=== PATIENT | male | born 1965 | race Caucasian/White ===

== ENCOUNTER → 2016-07-09 | Day surgery (SDC) | payer MEDICAID, OTHER ==
[~2016-07-09] VITALS: Ht 188 cm; Wt 163.7 kg
[~2016-07-09] MED LIST: ACETAMINOPHEN 325 MG TAB PO PRN; ACETYLCHOLINE OPHTH SOLN 1% 2ML As Ordered ONE; ACTO45TA6 PO; AcetaZOLAMIDE 500 MG ER CAP PO ONE; BALANCED SALT IRRIGATION SOLUTION 500ML BAG (FOR OR EYE MACHINE) As Ordered ONE; CEFUROXIME 1MG/0.1ML INTRACAMERAL INJ As Ordered ONE; CYCLOPENTOLATE 2% OPHTH SOLN As Ordered ONE; CYCLOPENTOLATE 2% OPHTH SOLN OD ONE; GLIP10TA PO; HEALON DUET (HEALON 10MG/ML 0.55ML & HEALON ENDOCOAT 30MG/ML 0.85ML) As Ordered ONE; KETOROLAC 0.5% OPHTH SOLN OD ONE; LIDOCAINE 1% SDV 5 ML VIAL As Ordered ONE; LIDOCAINE 4% INJ 5 ML AMP OU ONE; LISI10TA4 PO; MELO7.5T6 PO; METF1000 PO; MIDAZOLAM INJ 2 MG/2 ML VIAL (J2250) As Ordered ONE; OFLOXACIN 0.3 % (OCUFLOX) OPTH SOL 5ML As Ordered ONE; OFLOXACIN 0.3 % (OCUFLOX) OPTH SOL 5ML OD ONE; PHENYLEPHRINE 2.5% OPHTH SOL 2ML As Ordered ONE; PHENYLEPHRINE 2.5% OPHTH SOL 2ML OD ONE; POVIDONE-IODINE 5% OPHTH PREP SOL 30ML As Ordered ONE; PROPARACAINE 0.5% OPHTH SOL 15ML OD PRN; PROZ20CA11 PO; TIZA2CAP3 PO; TRIMETHOBENZAMIDE 300 MG CAP PO PRN; TROPICAMIDE 1% OPHTH SOLN 2 ML As Ordered ONE; TROPICAMIDE 1% OPHTH SOLN 2 ML OD ONE; fentaNYL 100 MCG/2 ML INJECTION (J3010) As Ordered ONE
--- NOTE | 2016-07-09 10:11 | RO ---
DATE OF PROCEDURE: 07/09/2016 PREPROCEDURE DIAGNOSIS: Age related posterior subcapsular cataract right eye. POSTPROCEDURE DIAGNOSIS: Age related posterior subcapsular cataract right eye. PROCEDURE: Phacoemulsification and posterior chamber intraocular lens implantation right eye. The lens used was [id number]. SURGEON: Greer Mercer MD RESIDENTIAL [employer] TECHNICIAN: ANESTHESIA: Topical with sedation. DESCRIPTION OF PROCEDURE: The patient was prepped and draped in the usual fashion. A lid speculum was placed between the lids. The eye was fixated. A stab incision was made to the anterior chamber, and 1% non-preserved lidocaine was instilled. Then, viscoelastic was instilled. The eye was re-fixated. A 2.75 mm sapphire keratome was used to make a clear corneal temporal limbal incision. Capsulorrhexis was begun with a 30-gauge bent needle and then carried out in a circular fashion with capsulorrhexis forceps. The lens was hydrodissected, and then the phacoemulsification unit was used to make a groove in the nucleus in two meridians. The nucleus was then cracked into four quadrants. Each quadrant was removed with the phacoemulsification unit. Any remaining cortex was removed with the irrigation and aspiration (I and A) unit. Capsular bag was refilled with viscoelastic. A posterior chamber intraocular lens was placed in the capsular bag without difficulty. Any remaining viscoelastic was removed with the I and A unit. The wound was hydrated, and Miochol and cefuroxime were instilled into the anterior chamber. The patient tolerated the procedure well and went to the recovery room in stable condition.
[2016-07-09 10:15] VITALS: BP 158/84
== END ==
LOC: M SDC 08:09
PROVIDERS: ATTEND Ophthalmology
DX: H25.041 Posterior subcapsular polar age-related cataract, right eye (principal); I10 Essential (primary) hypertension; E11.9 Type 2 diabetes mellitus without complications; G62.9 Polyneuropathy, unspecified; M54.9 Dorsalgia, unspecified; E66.01 Morbid (severe) obesity due to excess calories; B02.9 Zoster without complications; Z87.81 Personal history of (healed) traumatic fracture; F32.9 Major depressive disorder, single episode, unspecified; Z87.891 Personal history of nicotine dependence; Z79.899 Other long term (current) drug therapy; Z79.84 Long term (current) use of oral hypoglycemic drugs

== ENCOUNTER → 2017-03-06 | Outpatient (REF) | payer OTHER ==
[~2017-03-06] MED LIST changes: -ACETAMINOPHEN 325 MG TAB PO PRN; -ACETYLCHOLINE OPHTH SOLN 1% 2ML As Ordered ONE; +ACTO45TA12 PO; -ACTO45TA6 PO; -AcetaZOLAMIDE 500 MG ER CAP PO ONE; -BALANCED SALT IRRIGATION SOLUTION 500ML BAG (FOR OR EYE MACHINE) As Ordered ONE; -CEFUROXIME 1MG/0.1ML INTRACAMERAL INJ As Ordered ONE; -CYCLOPENTOLATE 2% OPHTH SOLN As Ordered ONE; -CYCLOPENTOLATE 2% OPHTH SOLN OD ONE; -HEALON DUET (HEALON 10MG/ML 0.55ML & HEALON ENDOCOAT 30MG/ML 0.85ML) As Ordered ONE; -KETOROLAC 0.5% OPHTH SOLN OD ONE; -LIDOCAINE 1% SDV 5 ML VIAL As Ordered ONE; -LIDOCAINE 4% INJ 5 ML AMP OU ONE; -MELO7.5T6 PO; +MELO7.5T7 PO; -METF1000 PO; +METF10004 PO; -MIDAZOLAM INJ 2 MG/2 ML VIAL (J2250) As Ordered ONE; -OFLOXACIN 0.3 % (OCUFLOX) OPTH SOL 5ML As Ordered ONE; -OFLOXACIN 0.3 % (OCUFLOX) OPTH SOL 5ML OD ONE; -PHENYLEPHRINE 2.5% OPHTH SOL 2ML As Ordered ONE; -PHENYLEPHRINE 2.5% OPHTH SOL 2ML OD ONE; -POVIDONE-IODINE 5% OPHTH PREP SOL 30ML As Ordered ONE; -PROPARACAINE 0.5% OPHTH SOL 15ML OD PRN; -TRIMETHOBENZAMIDE 300 MG CAP PO PRN; -TROPICAMIDE 1% OPHTH SOLN 2 ML As Ordered ONE; -TROPICAMIDE 1% OPHTH SOLN 2 ML OD ONE; -fentaNYL 100 MCG/2 ML INJECTION (J3010) As Ordered ONE
[2017-03-06 12:47] LABS: BLOOD UREA NITROGEN 22 MG/DL (7-18); CREATININE FOR GFR 1.15 MG/DL (0.70-1.30); GLOMERULAR FILTRATION RATE > 60.0 (>56)
== END ==
LOC: M LABDRAW1 11:49
PROVIDERS: ATTEND Physical Medicine & Rehabilitation
DX: M43.17 Spondylolisthesis, lumbosacral region (principal)

== ENCOUNTER → 2017-06-15 | Outpatient (REF) | payer OTHER ==
[2017-06-15 15:55] LABS: PLATELET COUNT, AUTOMATED 252 10^3/uL (150-450)
[2017-06-15 16:04] LABS: INR 0.89; PROTHROMBIN TIME 12.1 SECONDS (12.4-14.5)
[2017-06-15 16:05] LABS: PARTIAL THROMBOPLASTIN TIME 27.3 SECONDS (26.8-37.9)
== END ==
LOC: M LABDRAW1 13:04
DX: Z01.812 Encounter for preprocedural laboratory examination (principal)
CPT/HCPCS: 85049

== ENCOUNTER 2018-08-24 09:48 | Inpatient (IN) | payer OTHER ==
[~2018-08-24] VITALS: Ht 190.5 cm; Wt 165.0 kg
[~2018-08-24 09:48] MED LIST changes: +TIZA2CAP PO; -TIZA2CAP3 PO
[2018-08-24 15:50] VITALS: BP 128/70
[2018-08-24] MEDS ORDERED: DEXTROSE 50% 50 ML SYRINGE IV PRN (17:00)
[2018-08-24] MEDS ORDERED: GLUCOSE 4 GM CHEW TABLET PO PRN (17:00)
[2018-08-24] MEDS ORDERED: MAALOX 30 ML SUSP *UDC PO PRN (17:00)
[2018-08-24] MEDS ORDERED: MOM 30ML SUSPENSION UDC PO PRN (17:00)
[2018-08-24] MEDS ORDERED: ACETAMINOPHEN TAB 650MG DOSE (2X325MG) PO PRN (17:00)
[2018-08-24] MEDS ORDERED: GLUCAGON FOR INJ 1 MG VIAL (J1610) SC PRN (17:00)
[2018-08-24 17:42] LABS: HEMATOCRIT 37.2 % (42.0-52.0); HEMOGLOBIN 12.5 g/dl (13.5-17.5); MEAN CORPUSCULAR HEMOGLOBIN 28.8 pg (27.0-33.0); MEAN CORPUSCULAR HGB CONC 33.6 g/dl (32.0-36.5); MEAN CORPUSCULAR VOLUME 85.7 fl (80.0-96.0); PLATELET COUNT, AUTOMATED 170 10^3/uL (150-450); RED BLOOD COUNT 4.34 10^6/uL (4.30-6.10); WHITE BLOOD COUNT 10.5 10^3/uL (4.0-10.0)
--- NOTE | 2018-08-24 17:43 | REP ---
Clinical: Admission . Comparison: None . Findings: The mediastinum and cardiac silhouette are stable and within normal limits for portable technique. The lung cunningham are clear without acute consolidation, effusion, or pneumothorax. Skeletal structures are intact. Impression: No acute cardiopulmonary process appreciated. Electronically Signed by Zia Gregory MD 08/24/2018 05:34 P
[2018-08-24 17:53] LABS: INR 0.93; PROTHROMBIN TIME 12.6 SECONDS (12.1-14.4)
[2018-08-24 18:02] LABS: ALBUMIN 2.9 GM/DL (3.2-5.2); BILIRUBIN,TOTAL 0.4 MG/DL (0.2-1.0); CALCIUM LEVEL 8.7 MG/DL (8.5-10.1); CREATININE FOR GFR 1.35 MG/DL (0.70-1.30); GLOMERULAR FILTRATION RATE 58.6 (>56); POTASSIUM SERUM 4.1 MEQ/L (3.5-5.1); TOTAL PROTEIN 6.5 GM/DL (6.4-8.2)
[2018-08-24] MEDS: PIPERACILLIN/TAZOBACTAM SOD 3.375 GM in D5W MINI-BAG PLUS 50 ML IV SCH (18:20)
[2018-08-24] MEDS: HumaLOG INSULIN (NovoLOG) PER UNIT SC SCH ×2 (18:21→21:00)
[2018-08-24] MEDS ORDERED: GABA-843 PO (19:17)
[2018-08-24] MEDS ORDERED: CYCL10TA PO (19:17)
[2018-08-24] MEDS ORDERED: MONT10TA2 PO (19:17)
[2018-08-24] MEDS ORDERED: BASA100I SC (19:17)
[2018-08-24] MEDS ORDERED: HYDR-3713 PO (19:17)
[2018-08-24] MEDS ORDERED: MOBI4TAB PO (19:17)
--- NOTE | 2018-08-24 19:21 | HPEPDOC ---
General Date of Admission August 24, 2018 at 15:49 Date of Service: August 24, 2018 Attending Physician: CIERA MORELOS MD Chief Complaint The patient is a 53-year-old male admitted with a reason for visit of Osteomylitis. Source: Patient, RN/MD Exam Limitations: No limitations Timing/Duration: Getting worse Severity: Severe Associated Symptoms: Fever, Chills, Malaise, Nausea, Weakness, Dizziness History of Present Illness Patient is a 53-year-old male, past medical history significant for type 2 diabetes mellitus, morbid obesity, nicotine dependence, hypertension, t ransferred from another hospital on account of diabetic foot ulcer. Patient states last November. He stopped his left big toe and had a callus. Initially started to treat with Neosporin but when foot did not get better he saw his primary care physician who prescribed antibiotics and rest to the affected extremity for 2-3 weeks. His symptoms resolved and states foot did not bother him anymore. Occasionally, however, he noticed intermittently cage from the wound to his socks. Last , patient was walking when he suddenly felt nauseous, generalized malaise, nausea and vomiting. He went to the emergency room and was given antibiotic, Levaquin and sent home. Patient returned the next day, worse with a temp of 103. He was admitted and placed on vancomycin and Zosyn. His left foot at the time was swollen, red with streaking to his knee. Patient states he requested to be transferred to this facility for further evaluation and management. On initial assessment here. He is not febrile foot is still very painful, however,per patient looks improved from prior. Home Medications Scheduled Fluoxetine HCl (Prozac) 20 Mg Cap, 60 MG PO DAILY, (Reported) Gabapentin (Gabapentin) 300 Mg Capsule, 300 MG PO BID, (Reported) Glipizide (Glipizide) 10 Mg Tab, 10 MG PO BID, (Reported) Insulin Glargine,Hum.rec.anlog (Basaglar Kwikpen U-100) 100 Unit/1 Ml Insu ln.pen, 40 UNIT SC BID, (Reported) Insulin Human Lispro (Humalog) 100 Unit/1 Ml Vial, 1 DOSE SC ACHS, (Reported) PER SLIDING SCALE - STARTED AT [facility] Lisinopril (Lisinopril) 10 Mg Tab, 10 MG PO DAILY, (Reported) Meloxicam (Mobic) 7.5 Mg Tablet, 7.5 MG PO BID, (Reported) Metformin HCl (Metformin HCl) 1,000 Mg Tab, 1,000 MG PO BID, (Reported) Montelukast Sodium (Montelukast Sodium) 10 Mg Tablet, 10 MG PO QHS, (Reported) Nicotine (Nicotine Patch) 21 Mg/24 Hr Patch.td24, 21 MG TD DAILY, (Reported) STARTED AT [facility] Pioglitazone HCl (Actos) 45 Mg Tab, 45 MG PO DAILY, (Reported) Piperacillin Sodium/Tazobactam (Zosyn 3.375 Gram Vial) 3.375 Gm Vial, 1 INJ IV ASDIRECTED, (Reported) STARTED AT [facility] Tizanidine HCl (Tizanidine HCl) 2 Mg Cap, 6 MG PO TID, (Reported) Vancomycin/0.9 % Sod Chloride (Vanco 1.5 gm/500 ml-0.9% NaCl) 1.5 Gm/500 Ml Plast..bag, 1,500 MG IV ASDIRECTED, (Reported) STARTED AT [facility] Scheduled PRN Cyclobenzaprine HCl (Cyclobenzaprine HCl) 10 Mg Tablet, 10 MG PO QHS PRN for MUSCLE SPASMS, (Reported) Hydrocodone/Acetaminophen (Hydrocodone-Acetamin 5-325 mg) 1 Each Tablet, 1 TAB PO BID PRN for PAIN, (Reported) Allergies Coded Allergies: clindamycin (Verified Allergy, Severe, "CHEST POUNDING AND COULDN'T BREATHE", 08/24/18) Past Medical History Medical History Hypertension Type 2 diabetes mellitus Morbid obesity Nicotine dependence Gout Surgical History Umbilical hernia repair Right eye cataract Colonoscopy Back surgeries Family History Father: Non-Hodgkin's lymphoma Leukemia Mother: Diabetes mellitus Social History * Smoker: less than 1 pack/day, cigarettes, chew Drugs: denies A-FIB/CHADSVASC A-FIB History Current/History of A-Fib/PAF?: No Current PO Anticoag Therapy: No Review of Systems Other systems A 10 point pertinent review of systems was completed, negative except as stated in the history of presenting illness. Physical Examination Other physical findings GENERAL: obese SKIN : Warm, erythema and bullae to left foot great toe, medial aspect HEENT: Atraumatic, normocephalic, PERRL, moist mucous membrane CARDIOVASCULAR: Regular rate and rhythm, S1S2, no JVD, no edema, distal pulses + and palpable RESP: CTAB, no accessory muscle use noted ABDOMEN: BS+ non distended non tender MS: no joint deformities NEURO: Alert and oriented x 3, CN2-12 grossly intact PSYCH: no anxiety or agitation, appropriate mood and affect. Vital Signs Vital Signs Date Time Temp Pulse Resp B/P (MAP) Pulse Ox O2 Delivery O2 Flow Rate FiO2 08/24/18 15:50 97.9 77 18 128/70 (89) 95 Laboratory Data Labs 24H Laboratory Tests 2 08/24/18 17:24: Nucleated Red Blood Cells % (auto) 0.0, Prothrombin Time 12.6, Prothromb Time International Ratio 0.93, Anion Gap 5L, Glomerular Filtration Rate 58.6, Blood Urea Nitrogen 20H, Creatinine 1.35H, Sodium Level 138, Potassium Level 4.1, Chloride Level 103, Carbon Dioxide Level 30, Calcium Level 8.7, Aspartate Amino Transf (AST/SGOT) 56H, Alanine Aminotransferase (ALT/SGPT) 140H, Alkaline Phosphatase 126H, Total Bilirubin 0.4, Total Protein 6.5, Albumin 2.9L, Albumin/Globulin Ratio 0.81L 08/24/18 17:36: Bedside Glucose (Misc Panel) 216H CBC/BMP Laboratory Tests 08/24/18 17:24 Red Blood Count 4.34, Mean Corpuscular Volume 85.7, Mean Corpuscular Hemoglobin 28.8, Mean Corpuscular Hemoglobin Concent 33.6, Red Cell Distribution Width 13.4, Calcium Level 8.7, Aspartate Amino Transf (AST/SGOT) 56 H, Alanine Aminotransferase (ALT/SGPT) 140 H, Alkaline Phosphatase 126 H, Total Bilirubin 0.4, Total Protein 6.5, Albumin 2.9 L Microbiology Microbiology 08/24/18 Blood Culture, Received Pending Problems (1) Left foot infection Problem Text: -Continue vancomycin and Zosyn initiated at the other hospital -Consult infectious disease specialist for evaluation and recommendations -ID will need to be called as not available tonight -Discussed with Dr. Alcazar covering for ID was recommended. MRI of 2 to rule out osteomyelitis in the interim -Arterial duplex to evaluate for vascular competency -have consulted vascular specialist, Dr. Ames will follow up the patient tomorrow -Podiatry has also been consulted and will see patient tomorrow-foot x-ray ordered as recommended -frequent offloading (2) Diabetes mellitus type 2 in obese Problem Text: -Hold metformin and glipizide at this time -Diabetic diet, caloric controlled -Finger stick checks prior to meals and at bedtime -Basal bolus therapy -. Levemir 50 units twice a day -5 units lispro prior to meals (3) Hypertension Problem Text: -Continue home medications -Blood pressure monitoring per unit protocol -. Target systolic blood pressure less than 140 (4) DVT prophylaxis Problem Text: -Heparin SQ Q8 (5) Renal insufficiency Problem Text: -uncertain if reduced renal clearance chronic or acute -continuous IVF with NS -monitor response to therapy with labs (6) Nicotine dependence Problem Text: -patient has been counselled. No NicoDerm at this time due to non healing infection (7) Advance care planning Problem Text: -Code status is full resuscitation -Anticipate patient will need longer than 2 midnights due to diabetic foot ulcer, uncontrolled diabetes and possible osteomyelitis Plan / VTE VTE Prophylaxis Ordered?: Yes Plan Plan Seen and examined at bedside, was present at the bedside Guest discussed with COURT ATTENDANT Adoara Will admit patient to medical floor MRI of right foot. An x-ray of right foot has been ordered Vascular podiatry and ID consults are been called Continue IV antibiotics to recommendations from [facility] August 24, 2018 19:21 CIERA MORELOS MD August 25, 2018 07:25
[2018-08-24] MEDS ORDERED: MORPHINE 4 MG/ML 1ML VIAL/SYRINGE (J2270) IV PRN (19:30)
--- NOTE | 2018-08-24 19:32 | REP ---
Clinical: Ulcer at first toe. Technique: AP and lateral views of the left foot. Findings: Degenerative changes to the midfoot are appreciated along with degenerative changes at the tarsometatarsal joints. No acute fracture dislocation. Lateral view suggests mild swelling. No subcutaneous emphysema. No periosteal reaction to suggest osteomyelitis by radiographic evaluation. Impression: Degenerative changes primarily involving the midfoot and MTP joints. No acute fracture dislocation. No definite findings to suggest osteomyelitis. Electronically Signed by Zia Gregory MD 08/24/2018 07:23 P
[2018-08-24] MEDS ORDERED: NICO1DIS11 TD (19:47)
[2018-08-24] MEDS ORDERED: INSUHUMDS SC (19:47)
[2018-08-24] MEDS ORDERED: ZOSY3INJ2 IV (19:47)
[2018-08-24] MEDS ORDERED: [UNRECOGNIZED DRUG - CODE] IV (19:47)
[2018-08-24] MEDS ORDERED: VANCOMYCIN HCL 1,000 MG, VIAL MATE ADAPTER 1 EACH in D5W 250 ML IV ONE ×2 (20:00→21:00)
[2018-08-24] MEDS ORDERED: PROHANCE 279.3MG/ML 15ML VIAL (A9576) As Ordered ONE (20:20)
--- NOTE | 2018-08-24 20:58 | REPVR ---
EXAM: MR Left Lower Extremity Without and With Contrast, Foot EXAM DATE/TIME: 08/24/2018 8:33 PM CLINICAL HISTORY: 53 years old, male; Toes; Left; Patient HX: Chronic foot problems. No ulcer at this time, but 1st toe red and painful. ; Additional info: R/O osteomyelitis TECHNIQUE: Imaging protocol: MR of the Left foot without and with intravenous contrast. Contrast material: PROHANCE; Contrast volume: 15 ml; Contrast route: IV COMPARISON: CR Foot, Ap, Lat 08/24/2018 7:09 PM FINDINGS: Soft tissue swelling is present around the ankle and the foot with particular circumferential forefoot soft tissue swelling. No identifiable peripherally enhancing fluid collection suggestive of a drainable abscess or nail bed infection. 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 None of these bony changes appear acute. Within the forefoot, benign subchondral cysts are seen involving the TMT joints and proximal fifth metatarsal. No identifiable cortical disruption with particular attention to the great toe. No replacement of the normal T1 marrow signal. No evidence of septic arthropathy. Small volume of well-defined joint fluid at the dorsal aspect of the great toe MTP joint suggests a normal synovial recess. No evidence of tendon sheath infection. IMPRESSION: No evidence of osteomyelitis or septic arthropathy. Nonspecific soft tissue swelling of the forefoot and midfoot without evidence of drainable fluid collection Chronic neuroarthropathy changes of the midfoot Electronically signed by: Akil Hernandez On 08/24/2018 20:57:47 PM
[2018-08-24] MEDS: DOCUSATE SODIUM 100 MG CAP PO SCH (21:10)
[2018-08-24] MEDS: HEPARIN SOD (PORCINE) 5000 UNITS/ML VIAL SC SCH (21:10)
[2018-08-24] MEDS: LEVEMIR (INSULIN DETEMIR) 1 UNITS/0.01ML SC SCH (21:11)
[2018-08-24] MEDS: NORCO, ANEXSIA 5/325MG TABLET (HYDROcodone/ACETAMINOPHEN) PO PRN (21:12)
[2018-08-24] MEDS: NS 1,000 ML IV SCH (21:12)
[2018-08-24 22:00] VITALS: BP 162/81
--- NOTE | 2018-08-24 22:51 | PHACANCOPD ---
PHARMACY VANCOMYCIN DOSING Pt Demographics Demographics Patient Age:53 , Weight:165.000 , Gender: male Adjusted Body Weight Events Past 24 Hours Events Past 24 Hours: NO: Dialysis, Diuretic Therapy, Change in CrCl, Fever, Elevation in WBC, Pending Diagnostics, Pending Procedures, Other Vancomycin Vancomycin indication: DIABETIC FOOT Vancomycin Target Ranges: 10-20 mcg/ml Vancomycin Load Y/N: No Load Dose Date Time Vancomycin Load Dose: Date: Time: Vancomycin Dose Date: 08/24/18. Current Vancomycin Dose: [1GM IV Q8H START 23:00] Intermittent Dosing?: No Labs Labs Laboratory Tests Test 08/24/18 20:52 Random Vancomycin Level 10.3 UG/ML Laboratory Tests 08/24/18 17:24 Red Blood Count 4.34, Mean Corpuscular Volume 85.7, Mean Corpuscular Hemoglobin 28.8, Mean Corpuscular Hemoglobin Concent 33.6, Red Cell Distribution Width 13.4, Calcium Level 8.7, Aspartate Amino Transf (AST/SGOT) 56, Alanine Aminotransferase (ALT/SGPT) 140, Alkaline Phosphatase 126, Total Bilirubin 0.4, Total Protein 6.5, Albumin 2.9 Micro Microbiology 08/24/18 Blood Culture, Received Pending 08/24/18 MRSA Screen, Received Pending Creatinine Clearance Date:08/24/18. Creatinine Clearance: [>60 ml/min]. Pending Labs VANCO TROUGH 08/25/18 23:00 DOSE Assessment and Plan Maintaining Current Dose?: Yes Reason for dose change: No Dose Change Pharmacist Note Pharmacist Note Date: 08/24/18. PharmD note: TRANSFER FROM [facility]. RECORDS INDICATE A 1.5GM DOSE OF VANCO WAS GIVEN AT 11AM THIS MORNING. IT ISN'T CLEAR IF THIS WAS A ONE TIME DOSE OR A SCHEDULED MED. A RANDOM VANCO LEVEL DRAWN THIS EVENING = 10.3 mcg/ml. WE WILL CONTINUE WITH 30MG/KG/DAY ADJUSTED AND PROCEED WITH VANCO 1GM IV Q8H STARTING AT 23:00 THIS EVENING. A VANCO TROUGH IS PENDING HIS 08/25/18 23:00 DOSE [facility] August 24, 2018 22:51
[2018-08-24] MEDS: VANCOMYCIN HCL 1,000 MG, VIAL MATE ADAPTER 1 EACH in D5W 250 ML IV SCH (22:57)
[2018-08-24] MEDS ORDERED: NICOTINE 14 MG/24 HR TRANSDERMAL TD ONE (23:00)
[2018-08-25] MEDS: PIPERACILLIN/TAZOBACTAM SOD 3.375 GM in D5W MINI-BAG PLUS 50 ML IV SCH ×4 (00:18→17:18)
[2018-08-25] MEDS: HEPARIN SOD (PORCINE) 5000 UNITS/ML VIAL SC SCH ×3 (05:45→21:00)
[2018-08-25 06:00] VITALS: BP 148/82
[2018-08-25 06:07] LABS: HEMATOCRIT 39.1 % (42.0-52.0); MEAN CORPUSCULAR HEMOGLOBIN 28.3 pg (27.0-33.0); MEAN CORPUSCULAR HGB CONC 33.2 g/dl (32.0-36.5); MEAN CORPUSCULAR VOLUME 85.2 fl (80.0-96.0); PLATELET COUNT, AUTOMATED 209 10^3/uL (150-450); RED BLOOD COUNT 4.59 10^6/uL (4.30-6.10); WHITE BLOOD COUNT 10.3 10^3/uL (4.0-10.0)
[2018-08-25 06:40] LABS: ALBUMIN 2.6 GM/DL (3.2-5.2); ALT/SGPT 127 U/L (12-78); BILIRUBIN,TOTAL 0.4 MG/DL (0.2-1.0); BLOOD UREA NITROGEN 16 MG/DL (7-18); CALCIUM LEVEL 8.6 MG/DL (8.5-10.1); CARBON DIOXIDE LEVEL 29 MEQ/L (21-32); CHLORIDE LEVEL 107 MEQ/L (98-107); CREATININE FOR GFR 1.15 MG/DL (0.70-1.30); GLOMERULAR FILTRATION RATE > 60.0 (>56); GLUCOSE, FASTING 92 MG/DL (70-100); MAGNESIUM LEVEL 1.8 MG/DL (1.8-2.4); POTASSIUM SERUM 3.9 MEQ/L (3.5-5.1); SODIUM LEVEL 142 MEQ/L (136-145); TOTAL PROTEIN 6.6 GM/DL (6.4-8.2)
[2018-08-25] MEDS: VANCOMYCIN HCL 1,000 MG, VIAL MATE ADAPTER 1 EACH in D5W 250 ML IV SCH ×3 (06:49→22:31)
[2018-08-25] MEDS: HumaLOG INSULIN (NovoLOG) PER UNIT SC SCH ×7 (07:30→20:45)
[2018-08-25] MEDS: DOCUSATE SODIUM 100 MG CAP PO SCH ×2 (09:00→20:59)
[2018-08-25] MEDS: NS 1,000 ML IV SCH ×2 (09:54→15:01)
[2018-08-25] MEDS: NICOTINE 14 MG/24 HR TRANSDERMAL TD SCH (09:55)
[2018-08-25] MEDS: LEVEMIR (INSULIN DETEMIR) 1 UNITS/0.01ML SC SCH ×2 (10:07→21:01)
--- NOTE | 2018-08-25 11:31 | IPNPDOC ---
Subjective Date Seen The patient was seen on 08/25/18. Subjective Chief Complaint/HPI Swelling is still there but the redness is slightly improved. No other new complaints General: Denies: ROS Unobtainable, Chills, Night Sweats, Fatigue, Malaise, Normal Appetite, Other Symptoms Constitutional: Denies: Chills, Fever, Malaise, Night Sweats, Weakness, Fatigue, Weight Loss, Lethargy, Other Eyes: Denies: Pain, Vision change, Conjunctivae inflammation, Eyelid inflamm ation, Redness, Other ENT: Denies: Head Aches, Ear Pain, Dysphagia, Sinus Congestion, Post Nasal Drip, Sore Throat, Epistaxis, Other Symptoms Skin: Denies: Rash, Lesions, Jaundice, Bruising, Itching, Dry, Breakdown, Nail Changes, Other Pulmonary: Denies: Dyspnea, Cough, Pleuritic Chest Pain, Other Symptoms Cardiovascular: Denies: Chest Pain, Palpitations, Orthopnea, Paroxysmal Noc. Dyspnea, Edema, Lt Headedness, Other Symptoms Gastrointestinal: Denies: Nausea, Vomiting, Abdominal Pain, Diarrhea, Constipation, Melena, Hematochezia, Other Symptoms Genitourinary: Denies: Dysuria, Frequency, Incontinence, Hematuria, Retention, Other Symptoms Hematologic: Denies: Bruising, Bleeding Excessively, Petecchia, Purpura, Enlarged Lymph Nodes, Other Hematologic Musculoskeletal: Reports: Other Symptoms (. Left foot swelling, but redness has decreased. Left big toe ulceration at the bottom) Neurological: Denies: Weakness, Numbness, Incoordination, Change in speech, Confusion, Seizures, Other Symptoms Psych: Denies: Mood Normal, Anxiety, Depression, Memory Issues, Thoughts of Rhea f Harm, Anger, Thoughts of Harming Other, Other Psych Objective Physical Examination General Exam: Positive: Alert Eye Exam: Positive: PERRLA, Conjunctiva & lids normal ENT Exam: Positive: Atraumatic, Mucous membr. moist/pink Neck Exam: Positive: Supple Chest Exam: Positive: Clear to auscultation, Normal air movement Heart Exam: Positive: Rate Normal, Normal S1, Normal S2 Abdomen Exam: Positive: Normal bowel sounds, Soft Extremity Exam: Positive: Other (swelling of the left big toe with this with ulceration at the bottom also swelling of the left foot noted, but redness is decreased) Skin Exam: Positive: Other skin issue (as above) Neuro Exam: Positive: Strength at 5/5 X4 ext, Normal Tone, Sensation Intact Psych Exam: Positive: Mental status NL, Mood NL Assessment /Plan Problems (1) Left foot infection Problem Text: -Continue vancomycin and Zosyn initiated at the other hospital -Consult infectious disease specialist for evaluation and recommendations -ID will need to be called as not available tonight MRI of the foot shows no indication of osteomyelitis Discussed with Dr. Welsh, Continue Vanco and Zosyn, and she will see the patient tomorrow Also discussed with the wound management and agreed with the plan -Arterial duplex to evaluate for vascular competency -have consulted vascular specialist, Dr. Ames will follow up the patient tomorrow -Podiatry has also been consulted and will see patient tomorrow-foot x-ray ordered as recommended -frequent offloading (2) Diabetes mellitus type 2 in obese Problem Text: -Hold metformin and glipizide at this time -Diabetic diet, caloric controlled -Finger stick checks prior to meals and at bedtime -Basal bolus therapy -. Levemir 50 units twice a day -5 units lispro prior to meals (3) Hypertension Problem Text: -Continue home medications -Blood pressure monitoring per unit protocol -. Target systolic blood pressure less than 140 (4) DVT prophylaxis Problem Text: -Heparin SQ Q8 (5) Renal insufficiency Problem Text: -uncertain if reduced renal clearance chronic or acute -continuous IVF with NS -monitor response to therapy with labs (6) Nicotine dependence Problem Text: -patient has been counselled. No NicoDerm at this time due to non healing infection (7) Advance care planning Problem Text: -Code status is full resuscitation -Anticipate patient will need longer than 2 midnights due to diabetic foot ulcer, uncontrolled diabetes and possible osteomyelitis Plan/VTE VTE Prophylaxis Ordered?: Yes VS, I&O, 24H, Fishbone Vital Signs/I&O Vital Signs Date Time Temp Pulse Resp B/P (MAP) Pulse Ox O2 Delivery O2 Flow Rate FiO2 08/25/18 06:00 97.8 63 18 148/82 (104) 97 I&O- Last 24 Hours up to 6 AM 08/25/18 06:00 Intake Total 1520 ml Output Total 1390 ml Balance 130 ml Laboratory Data 24H LABS Laboratory Tests 2 08/24/18 17:24: Nucleated Red Blood Cells % (auto) 0.0, Prothrombin Time 12.6, Prothromb Time International Ratio 0.93, Anion Gap 5L, Glomerular Filtration Rate 58.6, Blood Urea Nitrogen 20H, Creatinine 1.35H, Sodium Level 138, Potassium Level 4.1, Chloride Level 103, Carbon Dioxide Level 30, Calcium Level 8.7, Aspartate Amino Transf (AST/SGOT) 56H, Alanine Aminotransferase (ALT/SGPT) 140H, Alkaline Phosphatase 126H, Total Bilirubin 0.4, Total Protein 6.5, Albumin 2.9L, Albumin/Globulin Ratio 0.81L 08/24/18 17:36: Bedside Glucose (Misc Panel) 216H 08/24/18 20:52: Random Vancomycin Level 10.3 08/24/18 21:21: Urine Color YELLOW, Urine Appearance CLEAR, Urine pH 5.0, Urine Specific [place] 1.013, Urine Protein NEGATIVE, Urine Glucose (UA) 3+H, Urine Ketones NEGATIVE, Urine Blood NEGATIVE, Urine Nitrite NEGATIVE, Urine Bilirubin NEGATIVE, Urine Urobilinogen 0.2, Urine Leukocyte Esterase NEGATIVE, Urine WBC (Auto) 1, Urine RBC (Auto) 1, Urine Hyaline Casts (Auto) 0, Urine Bacteria (Auto) NEGATIVE, Urine Squamous Epithelial Cells 0, Urine Mucus (Auto) SMALL, Urine Sperm (Auto) 08/25/18 05:35: Nucleated Red Blood Cells % (auto) 0.0, Anion Gap 6L, Glomerular Filtration Rate > 60.0, Blood Urea Nitrogen 16, Creatinine 1.15, Sodium Level 142, Potassium Level 3.9, Chloride Level 107, Carbon Dioxide Level 29, Calcium Level 8.6, Aspartate Amino Transf (AST/SGOT) 37, Alanine Aminotransferase (ALT/SGPT) 127H, Alkaline Phosphatase 119H, Total Bilirubin 0.4, Total Protein 6.6, Albumin 2.6L, Magnesium Level 1.8, Albumin/Globulin Ratio 0.65L 08/25/18 05:40: Bedside Glucose (Misc Panel) 95 08/25/18 11:18: Bedside Glucose (Misc Panel) 262H CBC/BMP Laboratory Tests 08/24/18 17:24 Red Blood Count 4.34, Mean Corpuscular Volume 85.7, Mean Corpuscular Hemoglobin 28.8, Mean Corpuscular Hemoglobin Concent 33.6, Red Cell Distribution Width 13.4, Calcium Level 8.7, Aspartate Amino Transf (AST/SGOT) 56 H, Alanine Aminotransferase (ALT/SGPT) 140 H, Alkaline Phosphatase 126 H, Total Bilirubin 0.4, Total Protein 6.5, Albumin 2.9 L 08/25/18 05:35 Red Blood Count 4.59, Mean Corpuscular Volume 85.2, Mean Corpuscular Hemoglobin 28.3, Mean Corpuscular Hemoglobin Concent 33.2, Red Cell Distribution Width 13.3, Calcium Level 8.6, Aspartate Amino Transf (AST/SGOT) 37, Alanine Aminotransferase (ALT/SGPT) 127 H, Alkaline Phosphatase 119 H, Total Bilirubin 0.4, Total Protein 6.6, Albumin 2.6 L Microbiology Microbiology 08/24/18 Blood Culture, Received Pending 08/24/18 MRSA Screen, Received Pending CIERA MORELOS MD August 25, 2018 11:31
--- NOTE | 2018-08-25 12:56 | CR ---
DATE OF CONSULTATION: 08/25/2018 REASON FOR CONSULTATION: Left hallux infection. Dain Mccarthy is a 53-year-old male who was admitted to the hospital yesterday as a transfer due to worsening left hallux infection. He states this began about a week ago. He was treated outpatient with oral antibiotics. However, the wound and infection worsened, and he became febrile. He was admitted to the emergency room (ER), subsequently transferred here. He has been started on empiric antibiotics with some improvement. PAST MEDICAL HISTORY: Is significant for diabetes, hypertension, obesity, gout. SURGICAL HISTORY: Includes umbilical hernia repair, cataract surgery, colonoscopy, back surgeries. SOCIAL HISTORY: Positive for tobacco use. Denies other drug use. ALLERGIES: Include CLINDAMYCIN. VITAL SIGNS: Are reviewed. He has been afebrile since admission. LABORATORIES: Are reviewed. White blood cell count was 10.5 on admission and 10.3 today. IMAGING STUDIES: Are reviewed. Foot x-ray and MRI are unremarkable in the area of the wound on the left hallux. There is some suggestion of Charcot changes to the midfoot. LOWER EXTREMITY EXAMINATION: Pedal pulses are palpable. There is some diminished sensation to both feet. There is an ulceration to the left hallux, plantar medial aspect with callus formation and surrounding erythema and some trace purulence. ASSESSMENT: A 53-year-old diabetic male with left hallux infection. PLAN: Incision and drainage performed following time-out and consent. The left hallux was prepped with Betadine solution. Using #15 blade, incision and drainage performed, removing the callus and some of the nonviable tissue. Trace purulence was noted underneath the callus. This was swabbed for culture. Sterile dressings were applied. No anesthesia was used due to neuropathy. Continue current antibiotics. Start mupirocin ointment to toe daily. Await culture results. Most likely, the patient should be able to be sent home on oral antibiotics with followup with me in office within the next 1-2 weeks.
[2018-08-25 14:00] VITALS: BP 140/80
[2018-08-25] MEDS: MUPIROCIN 2% OINT 22 GM TUBE TOP SCH (15:01)
--- NOTE | 2018-08-25 15:14 | CR.PDOC ---
General Date of Consultation: August 25, [address] Ames. REASON FOR CONSULTATION: LLE non healing wound HPI: 53year oldM transferred from another hospital for further management of diabetic foot ulcer. Patient states last November he stubbed his left big toe and had a "callus". Initially started to treat with Neosporin but when foot did not get better he saw his primary care physician who prescribed antibiotics and rest to the affected extremity for 2-3 weeks. His symptoms resolved and states foot did not bother him anymore. Occasionally, however, he noticed intermittent drainage from the wound to his socks. Last , patient reported he suddenly felt nauseous, generalized malaise, nausea and vomiting. He went to the emergency room and was given antibiotic, Levaquin and sent home. Patient returned the next day, worse with a temp of 103. He was admitted and placed on vancomycin and Zosyn. His left foot at the time was swollen, red with streaking to his knee. Patient states he requested to be transferred to this facility for further evaluation and management. Vascular Surgery is consulted for further recommendations re non healing ulcer LLE. Denies any Headache, Chest Pain, Shortness of breath, cough, palpitations, abdominal pain, N/V/D or changes in bowel or bladder habits. Medical History Hypertension Type 2 diabetes mellitus Morbid obesity Nicotine dependence Gout Surgical History Umbilical hernia repair Right eye cataract Colonoscopy Back surgeries FH Father: Non-Hodgkin's lymphoma Leukemia Mother: Diabetes mellitus Social History Smoker: less than 1 pack/day Drugs: denies ROS: As noted in HPI, otherwise 11pt ROS of systems reviewed and unremarkable. PE: GEN: 53yoM, appears stated age. Well-nourished, well developed. No acute distress. Alert and oriented x 3. HEENT: Normocephalic, atraumatic. Sclera are nonicteric. Conjunctiva without injection. No facial asymmetry. Moist mucous membranes. CHEST: Regular rate and rhythm, +S1, +S2 LUNGS: Clear to auscultation bilaterally. No wheezes, rales, or rhonchi. Breat augustina appears symmetric and easy. ABD: Round, soft, non-tender, non-distended. +Bowel sounds throughout. No rebound or guarding. EXT: No lower extremity edema appreciated. SKIN: Left foot with wound on plantar aspect great toe, yellowish drainage noted. Biphasic DP/PT on left with doppler. NEURO: Alert and oriented x 3. Cranial nerves III-XII are intact. No focal deficits appreciated. MRI Foot No evidence of osteomyelitis or septic arthropathy. Nonspecific soft tissue swelling of the forefoot and midfoot without evidence of drainable fluid collection Chronic neuroarthropathy changes of the midfoot Electronically signed by: Akil Hernandez On 08/24/2018 20:57:47 PM A&P: 53year oldM transferred from another hospital for further management of diabetic foot ulcer. Patient states last November he stubbed his left big toe and had a "callus". Initially started to treat with Neosporin but when foot did not get better he saw his primary care physician who prescribed antibiotics and rest to the affected extremity for 2-3 weeks. His symptoms resolved and states foot did not bother him anymore. Occasionally, however, he noticed intermittent drainage from the wound to his socks. Last , patient was walking when he suddenly felt nauseous, generalized malaise, nausea and vomiting. He went to the emergency room and was given antibiotic, Levaquin and sent home. Patient returned the next day, worse with a temp of 103. He was admitted and placed on vancomycin and Zosyn. His left foot at the time was swollen, red with streaking to his knee. Patient states he reque sted to be transferred to this facility for further evaluation and management. Vascular Surgery is consulted for further recommendations. 1. LLE non healing wound. Afebrile. WBC 10.3. IV Vanco/Zosyn currently as per Hospitalist. SCR 1.15 this AM. Plan for LLE angiogram as per Dr Ames 08/26/18. DVT prophylaxis. SQ Heparin. Thank you for your consultation. We will continue to follow along with you. Vital Signs/I&O Vital Signs Date Time Temp Pulse Resp B/P (MAP) Pulse Ox O2 Delivery O2 Flow Rate FiO2 08/25/18 06:00 97.8 63 18 148/82 (104) 97 I&O- Last 24 Hours up to 6 AM 08/25/18 06:00 Intake Total 1520 ml Output Total 1390 ml Balance 130 ml Laboratory Data Labs 24H Laboratory Tests 2 08/24/18 17:24: Nucleated Red Blood Cells % (auto) 0.0, Prothrombin Time 12.6, Prothromb Time International Ratio 0.93, Anion Gap 5L, Glomerular Filtration Rate 58.6, Blood Urea Nitrogen 20H, Creatinine 1.35H, Sodium Level 138, Potassium Level 4.1, Chloride Level 103, Carbon Dioxide Level 30, Calcium Level 8.7, Aspartate Amino Transf (AST/SGOT) 56H, Alanine Aminotransferase (ALT/SGPT) 140H, Alkaline Phosphatase 126H, Total Bilirubin 0.4, Total Protein 6.5, Albumin 2.9L, Albumin/Globulin Ratio 0.81L 08/24/18 17:36: Bedside Glucose (Misc Panel) 216H 08/24/18 20:52: Random Vancomycin Level 10.3 08/24/18 21:21: Urine Color YELLOW, Urine Appearance CLEAR, Urine pH 5.0, Urine Specific [place] 1.013, Urine Protein NEGATIVE, Urine Glucose (UA) 3+H, Urine Ketones NEGATIVE, Urine Blood NEGATIVE, Urine Nitrite NEGATIVE, Urine Bilirubin NEGATIVE, Urine Urobilinogen 0.2, Urine Leukocyte Esterase NEGATIVE, Urine WBC (Auto) 1, Urine RBC (Auto) 1, Urine Hyaline Casts (Auto) 0, Urine Bacteria (Auto) NEGATIVE, Urine Squamous Epithelial Cells 0, Urine Mucus (Auto) SMALL, Urine Sperm (Auto) 08/25/18 05:35: Nucleated Red Blood Cells % (auto) 0.0, Anion Gap 6L, Glomerular Filtration Rate > 60.0, Blood Urea Nitrogen 16, Creatinine 1.15, Sodium Level 142, Potassium Level 3.9, Chloride Level 107, Carbon Dioxide Level 29, Calcium Level 8.6, Aspartate Amino Transf (AST/SGOT) 37, Alanine Aminotransferase (ALT/SGPT) 127H, Alkaline Phosphatase 119H, Total Bilirubin 0.4, Total Protein 6.6, Albumin 2.6L, Magnesium Level 1.8, Albumin/Globulin Ratio 0.65L 08/25/18 05:40: Bedside Glucose (Misc Panel) 95 08/25/18 11:18: Bedside Glucose (Misc Panel) 262H CBC/BMP Laboratory Tests 08/24/18 17:24 Red Blood Count 4.34, Mean Corpuscular Volume 85.7, Mean Corpuscular Hemoglobin 28.8, Mean Corpuscular Hemoglobin Concent 33.6, Red Cell Distribution Width 13.4, Calcium Level 8.7, Aspartate Amino Transf (AST/SGOT) 56 H, Alanine Aminotransferase (ALT/SGPT) 140 H, Alkaline Phosphatase 126 H, Total Bilirubin 0.4, Total Protein 6.5, Albumin 2.9 L 08/25/18 05:35 Red Blood Count 4.59, Mean Corpuscular Volume 85.2, Mean Corpuscular Hemoglobin 28.3, Mean Corpuscular Hemoglobin Concent 33.2, Red Cell Distribution Width 13.3, Calcium Level 8.6, Aspartate Amino Transf (AST/SGOT) 37, Alanine Aminotransferase (ALT/SGPT) 127 H, Alkaline Phosphatase 119 H, Total Bilirubin 0.4, Total Protein 6.6, Albumin 2.6 L Microbiology Microbiology 08/24/18 Blood Culture, Received Pending 08/24/18 MRSA Screen, Received Pending 08/25/18 Wound Culture, Received Pending Allergies Coded Allergies: clindamycin (Verified Allergy, Severe, "CHEST POUNDING AND COULDN'T BREATHE", 08/24/18) Home Medications Scheduled Fluoxetine HCl (Prozac) 20 Mg Cap, 60 MG PO DAILY, (Reported) Gabapentin (Gabapentin) 300 Mg Capsule, 300 MG PO BID, (Reported) Glipizide (Glipizide) 10 Mg Tab, 10 MG PO BID, (Reported) Insulin Glargine,Hum.rec.anlog (Basaglar Kwikpen U-100) 100 Unit/1 Ml Insuln.pen, 40 UNIT SC BID, (Reported) Insulin Human Lispro (Humalog) 100 Unit/1 Ml Vial, 1 DOSE SC ACHS, (Reported) PER SLIDING SCALE - STARTED AT [facility] Lisinopril (Lisinopril) 10 Mg Tab, 10 MG PO DAILY, (Reported) Meloxicam (Mobic) 7.5 Mg Tablet, 7.5 MG PO BID, (Reported) Metformin HCl (Metformin HCl) 1,000 Mg Tab, 1,000 MG PO BID, (Reported) Montelukast Sodium (Montelukast Sodium) 10 Mg Tablet, 10 MG PO QHS, (Reported) Nicotine (Nicotine Patch) 21 Mg/24 Hr Patch.td24, 21 MG TD DAILY, (Reported) STARTED AT [facility] Pioglitazone HCl (Actos) 45 Mg Tab, 45 MG PO DAILY, (Reported) Piperacillin Sodium/Tazobactam (Zosyn 3.375 Gram Vial) 3.375 Gm Vial, 1 INJ IV ASDIRECTED, (Reported) STARTED AT [facility] Tizanidine HCl (Tizanidine HCl) 2 Mg Cap, 6 MG PO TID, (Reported) Vancomycin/0.9 % Sod Chloride (Vanco 1.5 gm/500 ml-0.9% NaCl) 1.5 Gm/500 Ml Plast..bag, 1,500 MG IV ASDIRECTED, (Reported) STARTED AT [facility] Scheduled PRN Cyclobenzaprine HCl (Cyclobenzaprine HCl) 10 Mg Tablet, 10 MG PO QHS PRN for MUSCLE SPASMS, (Reported) Hydrocodone/Acetaminophen (Hydrocodone-Acetamin 5-325 mg) 1 Each Tablet, 1 TAB PO BID PRN for PAIN, (Reported) Mar Chavira August 25, 2018 14:17
[2018-08-25 18:00] VITALS: BP 129/82
--- NOTE | 2018-08-25 19:35 | REP ---
Clinical: Nonhealing ulcer Technique: Real time balbuena scale and color Doppler evaluation of the bilateral lower extremity arterial vasculature using linear high frequency transducer. Findings: Balbuena scale and color images demonstrate relatively normal lower extremity arteries without evidence for stenosis or occlusion. Doppler interrogation demonstrates normal triphasic arterial wave forms and velocities through the ankles with mildly increased velocities through the bilateral feet. Peak systolic velocities (cm/sec) RIGHT LEFT Common femoral artery 92.5 67.5 Profunda femoris 89.5 41.8 SFA (proximal) 88.6 85.6 SFA (mid) 75.0 69.9 SFA (distal) 74.3 58.6 Popliteal artery 67.9 66.8 ROLA (prox.) 64.6 59.8 Tibioperoneal trunk 87.3 63.6 STRIPE MARKER (prox.) 100.2 59.8 STRIPE MARKER (distal) 92.4 111.6 ROLA (distal) 110.1 109.1 Impression: No evidence for stenosis or occlusion. Electronically Signed by Zia Gregory MD 08/25/2018 07:26 P
[2018-08-25 22:00] VITALS: BP 161/85
--- NOTE | 2018-08-25 23:36 | PHACANCOPD ---
PHARMACY VANCOMYCIN DOSING Pt Demographics Demographics Patient Age:53 , Weight:165.000 , Gender: male Adjusted Body Weight Events Past 24 Hours Events Past 24 Hours: NO: Dialysis, Diuretic Therapy, Change in CrCl, Fever, Elevation in WBC, Pending Diagnostics, Pending Procedures, Other Vancomycin Vancomycin indication: DIABETIC FOOT Vancomycin Target Ranges: 10-20 mcg/ml Vancomycin Load Y/N: No Load Dose Date Time Vancomycin Load Dose: Date: Time: Vancomycin Dose Date: 08/25/18. Current Vancomycin Dose: [1GM IV Q8H 23:00] Intermittent Dosing?: No Labs Labs Laboratory Tests Test 08/24/18 20:52 08/25/18 21:58 Random Vancomycin Level 10.3 UG/ML Vancomycin Level Trough 13.3 UG/ML (10.0-20.0) Laboratory Tests 08/24/18 17:24 Red Blood Count 4.34, Mean Corpuscular Volume 85.7, Mean Corpuscular Hemoglobin 28.8, Mean Corpuscular Hemoglobin Concent 33.6, Red Cell Distribution Width 13.4, Calcium Level 8.7, Aspartate Amino Transf (AST/SGOT) 56, Alanine Aminotransferase (ALT/SGPT) 140, Alkaline Phosphatase 126, Total Bilirubin 0.4, Total Protein 6.5, Albumin 2.9 08/25/18 05:35 Red Blood Count 4.59, Mean Corpuscular Volume 85.2, Mean Corpuscular Hemoglobin 28.3, Mean Corpuscular Hemoglobin Concent 33.2, Red Cell Distribution Width 13.3, Calcium Level 8.6, Aspartate Amino Transf (AST/SGOT) 37, Alanine Aminotransferase (ALT/SGPT) 127, Alkaline Phosphatase 119, Total Bilirubin 0.4, Total Protein 6.6, Albumin 2.6 Micro Microbiology 08/24/18 Blood Culture - Preliminary, Resulted No growth after 24 hours . All specim... 08/24/18 MRSA Screen, Received Pending 08/25/18 Wound Culture, Received Pending Creatinine Clearance Date:08/24/18. Creatinine Clearance: [>60 ml/min]. Assessment and Plan Maintaining Current Dose?: Yes Reason for dose change: No Dose Change Pharmacist Note Pharmacist Note Date: 08/25/18. PharmD note: VANCO 1GM IV Q8H RESULTED IN A VANCO TROUGH = 13.3 mcg/ml GOAL 10-20; CONTINUE ORDERED [facility] August 25, 2018 23:36
[2018-08-26] MEDS: NORCO, ANEXSIA 5/325MG TABLET (HYDROcodone/ACETAMINOPHEN) PO PRN ×2 (00:22→14:11)
[2018-08-26] MEDS: PIPERACILLIN/TAZOBACTAM SOD 3.375 GM in D5W MINI-BAG PLUS 50 ML IV SCH ×4 (00:22→17:47)
[2018-08-26] MEDS: NS 1,000 ML IV SCH ×2 (00:23→07:39)
[2018-08-26 06:00] VITALS: BP 159/84
[2018-08-26 06:08] LABS: BASO # 0.1 10^3/uL (0.0-0.2); BASO % 0.6 % (0.0-1.0); EOS # 0.5 10^3/uL (0.0-0.50); EOS % 4.4 % (0.0-3.0); HEMATOCRIT 36.6 % (42.0-52.0); HEMOGLOBIN 12.2 g/dl (13.5-17.5); LYMPH # 3.2 10^3/uL (1.5-4.5); LYMPH % 29.4 % (24.0-44.0); MEAN CORPUSCULAR HEMOGLOBIN 28.1 pg (27.0-33.0); MEAN CORPUSCULAR HGB CONC 33.3 g/dl (32.0-36.5); MEAN CORPUSCULAR VOLUME 84.3 fl (80.0-96.0); MONO # 1.1 10^3/uL (0.0-0.8); MONO % 10.2 % (0.0-5.0); NEUTROPHILS # 5.7 10^3/uL (1.8-7.7); PLATELET COUNT, AUTOMATED 271 10^3/uL (150-450); RED BLOOD COUNT 4.34 10^6/uL (4.30-6.10); WHITE BLOOD COUNT 10.7 10^3/uL (4.0-10.0)
[2018-08-26] MEDS: HEPARIN SOD (PORCINE) 5000 UNITS/ML VIAL SC SCH ×3 (06:11→22:04)
[2018-08-26 06:36] LABS: ALBUMIN 2.9 GM/DL (3.2-5.2); ALT/SGPT 102 U/L (12-78); BILIRUBIN,TOTAL 0.4 MG/DL (0.2-1.0); BLOOD UREA NITROGEN 17 MG/DL (7-18); CARBON DIOXIDE LEVEL 28 MEQ/L (21-32); CHLORIDE LEVEL 108 MEQ/L (98-107); CREATININE FOR GFR 1.13 MG/DL (0.70-1.30); GLOMERULAR FILTRATION RATE > 60.0 (>56); GLUCOSE, FASTING 141 MG/DL (70-100); POTASSIUM SERUM 4.1 MEQ/L (3.5-5.1); SODIUM LEVEL 141 MEQ/L (136-145); TOTAL PROTEIN 6.5 GM/DL (6.4-8.2)
[2018-08-26] MEDS: NICOTINE 14 MG/24 HR TRANSDERMAL TD SCH (07:38)
[2018-08-26] MEDS: MUPIROCIN 2% OINT 22 GM TUBE TOP SCH (07:39)
[2018-08-26] MEDS: VANCOMYCIN HCL 1,000 MG, VIAL MATE ADAPTER 1 EACH in D5W 250 ML IV SCH ×2 (07:39→14:10)
[2018-08-26] MEDS: LEVEMIR (INSULIN DETEMIR) 1 UNITS/0.01ML SC SCH ×2 (07:40→22:03)
[2018-08-26] MEDS: DOCUSATE SODIUM 100 MG CAP PO SCH (07:40)
[2018-08-26] MEDS: HumaLOG INSULIN (NovoLOG) PER UNIT SC SCH ×7 (07:40→21:00)
--- NOTE | 2018-08-26 10:06 | IPNPDOC ---
Date Seen The patient was seen on 08/26/18. Progress Note HPI: 53year oldM transferred from another hospital for further management of diabetic foot ulcer. Patient states last November he stubbed his left big toe and had a "callus". Initially started to treat with Neosporin but when foot did not get better he saw his primary care physician who prescribed antibiotics and rest to the affected extremity for 2-3 weeks. His symptoms resolved and states f oot did not bother him anymore. Occasionally, however, he noticed intermittent drainage from the wound to his socks. Last , patient reported he suddenly felt nauseous, generalized malaise, nausea and vomiting. He went to the emergency room and was given antibiotic, Levaquin and sent home. Patient returned the next day, worse with a temp of 103. He was admitted and placed on vancomycin and Zosyn. His left foot at the time was swollen, red with streaking to his knee. Patient states he requested to be transferred to this facility for further evaluation and management. Vascular Surgery is consulted for further recommendations re non healing ulcer LLE. Denies any Headache, Chest Pain, Shortness of breath, cough, palpitations, abdominal pain, N/V/D or changes in bowel or bladder habits. Medical History Hypertension Type 2 diabetes mellitus Morbid obesity Nicotine dependence Gout Surgical History Umbilical hernia repair Right eye cataract Colonoscopy Back surgeries PE: GEN: 53yoM, appears stated age. Well-nourished, well developed. No acute distress. Alert and oriented x 3. HEENT: Normocephalic, atraumatic. Sclera are nonicteric. Conjunctiva without injection. No facial asymmetry. Moist mucous membranes. CHEST: Regular rate and rhythm, +S1, +S2 LUNGS: Clear to auscultation bilaterally. No wheezes, rales, or rhonchi. Breathing appears symmetric and easy. ABD: Round, soft, non-tender, non-distended. +Bowel sounds throughout. No rebound or guarding. EXT: No lower extremity edema appreciated. SKIN: Left foot with wound on plantar aspect great toe, yellowish drainage noted. Biphasic DP/PT on left with doppler. NEURO: Alert and oriented x 3. Cranial nerves III-XII are intact. No focal deficits appreciated. MRI Foot No evidence of osteomyelitis or septic arthropathy. Nonspecific soft tissue swelling of the forefoot and midfoot without evidence of drainable fluid collection Chronic neuroarthropathy changes of the midfoot Electronically signed by: Akil Hernandez On 08/24/2018 20:57:47 PM LE Art US Balbuena scale and color images demonstrate relatively normal lower extremity arteries without evidence for stenosis or occlusion. Doppler interrogation demonstrates normal triphasic arterial wave forms and velocities through the ankles with mildly increased velocities through the bilateral feet. Peak systolic velocities (cm/sec) RIGHT LEFT Common femoral artery 92.5 67.5 Profunda femoris 89.5 41.8 SFA (proximal) 88.6 85.6 SFA (mid) 75.0 69.9 SFA (distal) 74.3 58.6 Popliteal artery 67.9 66.8 ROLA (prox.) 64.6 59.8 Tibioperoneal trunk 87.3 63.6 CUT OFF SAWYER (prox.) 100.2 59.8 CUT OFF SAWYER (distal) 92.4 111.6 ROLA (distal) 110.1 109.1 Impression: No evidence for stenosis or occlusion. A&P: 53year oldM transferred from another hospital for further management of diabetic foot ulcer. Patient states last November he stubbed his left big toe and had a "callus". Initially started to treat with Neosporin but when foot did not get better he saw his primary care physician who prescribed antibiotics and rest to the affected extremity for 2-3 weeks. His symptoms resolved and states foot did not bother him anymore. Occasionally, however, he noticed intermittent drainage from the wound to his socks. Last , patient was walking when he suddenly felt nauseous, generalized malaise, nausea and vomiting. He went to the emergency room and was given antibiotic, Levaquin and sent home. Patient returned the next day, worse with a temp of 103. He was admitted and placed on vancomycin and Zosyn. His left foot at the time was swollen, red with streaking to his knee. Patient states he requested to be transferred to this facility for further evaluation and management. Vascular Surgery is consulted for further recommendations. 1. LLE non healing wound. S/P debridement as per Dr Quezada 08/25/18 Afebrile. WBC 10.7. IV Vanco/Zosyn currently as per Hospitalist. BC neg x 1 MRSA screen pending. WC pending. SCR 1.13 this AM. Plan for LLE angiogram as per Dr Ames 08/27/18. VS, I&O, 24H, Fishbone Vital Signs/I&O Vital Signs Date Time Temp Pulse Resp B/P (MAP) Pulse Ox O2 Delivery O2 Flow Rate FiO2 08/26/18 06:00 97.2 56 18 159/84 (109) 94 I&O- Last 24 Hours up to 6 AM 08/26/18 06:00 Intake Total 3820 ml Output Total 2200 ml Balance 1620 ml Laboratory Data 24H LABS Laboratory Tests 2 08/25/18 11:18: Bedside Glucose (Misc Panel) 262H 08/25/18 16:23: Bedside Glucose (Misc Panel) 286H 08/25/18 20:30: Bedside Glucose (Misc Panel) 221H 08/25/18 21:58: Vancomycin Level Trough 13.3 08/26/18 05:39: Immature Granulocyte % (Auto) 2.4, White Blood Count 10.7H, Red Blood Count 4.34, Hemoglobin 12.2L, Hematocrit 36.6L, Mean Corpuscular Volume 84.3, Mean Corpuscular Hemoglobin 28.1, Mean Corpuscular Hemoglobin Concent 33.3, Red Cell Distribution Width 13.3, Platelet Count 271, Neutrophils (%) (Auto) 53.0, Lymphocytes (%) (Auto) 29.4, Monocytes (%) (Auto) 10.2H, Eosinophils (%) (Auto) 4.4H, Basophils (%) (Auto) 0.6, Neutrophils # (Auto) 5.7, Lymphocytes # (Auto) 3.2, Monocytes # (Auto) 1.1H, Eosinophils # (Auto) 0.5, Basophils # (Auto) 0.1, Nucleated Red Blood Cells % (auto) 0.0, Anion Gap 5L, Glomerular Filtration Rate > 60.0, Blood Urea Nitrogen 17, Creatinine 1.13, Sodium Level 141, Potassium Level 4.1, Chloride Level 108H, Carbon Dioxide Level 28, Calcium Level 9.0, Aspartate Amino Transf (AST/SGOT) 33, Alanine Aminotransferase (ALT/SGPT) 102H, Alkaline Phosphatase 129H, Total Bilirubin 0.4, Total Protein 6.5, Albumin 2.9L, Albumin/Globulin Ratio 0.81L CBC/BMP Laboratory Tests 08/26/18 05:39 Red Blood Count 4.34, Mean Corpuscular Volume 84.3, Mean Corpuscular Hemoglobin 28.1, Mean Corpuscular Hemoglobin Concent 33.3, Red Cell Distribution Width 13. 3, Neutrophils (%) (Auto) 53.0, Lymphocytes (%) (Auto) 29.4, Monocytes (%) (Auto) 10.2 H, Eosinophils (%) (Auto) 4.4 H, Basophils (%) (Auto) 0.6, Neutrophils # (Auto) 5.7, Lymphocytes # (Auto) 3.2, Monocytes # (Auto) 1.1 H, Eosinophils # (Auto) 0.5, Basophils # (Auto) 0.1, Calcium Level 9.0, Aspartate Amino Transf (AST/SGOT) 33, Alanine Aminotransferase (ALT/SGPT) 102 H, Alkaline Phosphatase 129 H, Total Bilirubin 0.4, Total Protein 6.5, Albumin 2.9 L Microbiology Microbiology 08/24/18 Blood Culture - Preliminary, Resulted No growth after 24 hours . All specim... 08/24/18 MRSA Screen, Received Pending 08/25/18 Wound Culture, Received Pending Mar Chavira August 26, 2018 10:06
--- NOTE | 2018-08-26 11:44 | IPN ---
DATE: 08/26/2018 The patient is seen and examined. Denies overnight complaints. He states that his toes feel a little bit better. Laboratories are reviewed. White blood cell count is 10.7. Culture results are pending. Methicillin resistant Staphylococcus aureus (MRSA) screen is negative. Lower extremity examination: Improvement in wound condition. Improvement in erythema. There is some persistent edema proximal to the left hallux. ASSESSMENT: 53-year-old diabetic male with left hallux ulceration and cellulitis. PLAN: The patient most likely will go home tomorrow on oral antibiotics for 10 days. Ideally, culture results will be available prior to discharge. The patient will followup with me in 1 week in the office.
--- NOTE | 2018-08-26 11:47 | IPNPDOC ---
Subjective Date Seen The patient was seen on 08/26/18. Subjective Chief Complaint/HPI Redness and swelling is is resolving status post I&D General: Denies: ROS Unobtainable, Chills, Night Sweats, Fatigue, Malaise, Normal Appetite, Other Symptoms Constitutional: Denies: Chills, Fever, Malaise, Night Sweats, Weakness, Fatigue, Weight Loss, Lethargy, Other Eyes: Denies: Pain, Vision change, Conjunctivae inflammation, Eyelid inflammation, Redness, Other ENT: Denies: Head Aches, Ear Pain, Dysphagia, Sinus Congestion, Post Nasal Drip, Sore Throat, Epistaxis, Other Symptoms Skin: Denies: Rash, Lesions, Jaundice, Bruising, Itching, Dry, Breakdown, Nail Changes, Other Pulmonary: Denies: Dyspnea, Cough, Pleuritic Chest Pain, Other Symptoms Cardiovascular: Denies: Chest Pain, Palpitations, Orthopnea, Paroxysmal Noc. Dyspnea, Edema, Lt Headedness, Other Symptoms Gastrointestinal: Denies: Nausea, Vomiting, Abdominal Pain, Diarrhea, Constipation, Melena, Hematochezia, Other Symptoms Genitourinary: Denies: Dysuria, Frequency, Incontinence, Hematuria, Retention, Other Symptoms Hematologic: Denies: Bruising, Bleeding Excessively, Petecchia, Purpura, Enlarged Lymph Nodes, Other Hematologic Endocrine: Denies: Polydipsia, Polyphagia, Polyuria, Heat Intolerance, Cold Intolerance, Other Endocrine Sx Musculoskeletal: Reports: Other Symptoms (redness and swelling have resolved. There is a dressing on the right big toe) Neurological: Denies: Weakness, Numbness, Incoordination, Change in speech, Confusion, Seizures, Other Symptoms Psych: Denies: Mood Normal, Anxiety, Depression, Memory Issues, Thoughts of Self Harm, Anger, Thoughts of Harming Other, Other Psych Objective Physical Examination General Exam: Positive: Alert Eye Exam: Positive: PERRLA, Conjunctiva & lids normal ENT Exam: Positive: Atraumatic, Mucous membr. moist/pink Neck Exam: Positive: Supple Chest Exam: Positive: Clear to auscultation, Normal air movement Heart Exam: Positive: Rate Normal, Normal S1, Normal S2 Abdomen Exam: Positive: Normal bowel sounds, Soft Extremity Exam: Positive: Other (swelling of the left big toe with this with ulceration at the bottom also swelling of the left foot noted, but redness is decreased) Skin Exam: Positive: Other skin issue (as above) Neuro Exam: Positive: Strength at 5/5 X4 ext, Normal Tone, Sensation Intact Psych Exam: Positive: Mental status NL, Mood NL Assessment /Plan Problems (1) Left foot infection Problem Text: -Continue vancomycin and Zosyn initiated at the other hospital -Consult infectious disease specialist for evaluation and recommendations -ID will need to be called as not available tonight MRI of the foot shows no indication of osteomyelitis Discussed with Dr. Welsh, Also discussed with the wound management and agreed with the plan Arterial duplex scheduled today Continue IV antibiotics Vanco and Zosyn will be seen by ID today I&D done. Cultures pending Elevation DC once the cultures are back (2) Diabetes mellitus type 2 in obese Problem Text: -Hold metformin and glipizide at this time -Diabetic diet, caloric controlled -Finger stick checks prior to meals and at bedtime -Basal bolus therapy -. Levemir 50 units twice a day -5 units lispro prior to meals (3) Hypertension Problem Text: -Continue home medications -Blood pressure monitoring per unit protocol -. Target systolic blood pressure less than 140 (4) DVT prophylaxis Problem Text: -Heparin SQ Q8 (5) Renal insufficiency Problem Text: -uncertain if reduced renal clearance chronic or acute -continuous IVF with NS -monitor response to therapy with labs (6) Nicotine dependence Problem Text: -patient has been counselled. No NicoDerm at this time due to non healing infection (7) Advance care planning Problem Text: -Code status is full resuscitation -Anticipate patient will need longer than 2 midnights due to diabetic foot ulcer, uncontrolled diabetes and possible osteomyelitis Plan/VTE VTE Prophylaxis Ordered?: Yes VS, I&O, 24H, [place] Vital Signs/I&O Vital Signs Date Time Temp Pulse Resp B/P (MAP) Pulse Ox O2 Delivery O2 Flow Rate FiO2 08/26/18 06:00 97.2 56 18 159/84 (109) 94 I&O- Last 24 Hours up to 6 AM 08/26/18 06:00 Intake Total 3820 ml Output Total 2200 ml Balance 1620 ml Laboratory Data 24H LABS Laboratory Tests 2 08/25/18 16:23: Bedside Glucose (Misc Panel) 286H 08/25/18 20:30: Bedside Glucose (Misc Panel) 221H 08/25/18 21:58: Vancomycin Level Trough 13.3 08/26/18 05:39: Immature Granulocyte % (Auto) 2.4, White Blood Count 10.7H, Red Blood Count 4.34, Hemoglobin 12.2L, Hematocrit 36.6L, Mean Corpuscular Volume 84.3, Mean Corpuscular Hemoglobin 28.1, Mean Corpuscular Hemoglobin Concent 33.3, Red Cell Distribution Width 13.3, Platelet Count 271, Neutrophils (%) (Auto) 53.0, Lymphocytes (%) (Auto) 29.4, Monocytes (%) (Auto) 10.2H, Eosinophils (%) (Auto) 4.4H, Basophils (%) (Auto) 0.6, Neutrophils # (Auto) 5.7, Lymphocytes # (Auto) 3.2, Monocytes # (Auto) 1.1H, Eosinophils # (Auto) 0.5, Basophils # (Auto) 0.1, Nucleated Red Blood Cells % (auto) 0.0, Anion Gap 5L, Glomerular Filtration Rate > 60.0, Blood Urea Nitrogen 17, Creatinine 1.13, Sodium Level 141, Potassium Level 4.1, Chloride Level 108H, Carbon Dioxide Level 28, Calcium Level 9.0, Aspartate Amino Transf (AST/SGOT) 33, Alanine Aminotransferase (ALT/SGPT) 102H, Alkaline Phosphatase 129H, Total Bilirubin 0.4, Total Protein 6.5, Albumin 2.9L, Albumin/Globulin Ratio 0.81L CBC/BMP Laboratory Tests 08/26/18 05:39 Red Blood Count 4.34, Mean Corpuscular Volume 84.3, Mean Corpuscular Hemoglobin 28.1, Mean Corpuscular Hemoglobin Concent 33.3, Red Cell Distribution Width 13.3, Neutrophils (%) (Auto) 53.0, Lymphocytes (%) (Auto) 29.4, Monocytes (%) (Auto) 10.2 H, Eosinophils (%) (Auto) 4.4 H, Basophils (%) (Auto) 0.6, Neutrophils # (Auto) 5.7, Lymphocytes # (Auto) 3.2, Monocytes # (Auto) 1.1 H, Eosinophils # (Auto) 0.5, Basophils # (Auto) 0.1, Calcium Level 9.0, Aspartate Amino Transf (AST/SGOT) 33, Alanine Aminotransferase (ALT/SGPT) 102 H, Alkaline Phosphatase 129 H, Total Bilirubin 0.4, Total Protein 6.5, Albumin 2.9 L Microbiology Microbiology 08/24/18 Blood Culture - Preliminary, Resulted No growth after 24 hours . All specim... 08/24/18 MRSA Screen - Final, Complete 08/25/18 Wound Culture, Received Pending CIERA MORELOS MD August 26, 2018 11:47
[2018-08-26 14:00] VITALS: BP 165/74
[2018-08-26] MEDS: LISINOPRIL 10 MG TAB PO SCH (14:11)
--- NOTE | 2018-08-26 21:34 | CR ---
DATE OF CONSULTATION: 08/26/2018 Asked to consult by hospitalist for evaluation of toe abscess with cellulitis of left leg. HISTORY OF PRESENT ILLNESS: Mr. Mccarthy is a pleasant 53-year-old gentleman with obesity, diabetes and a diabetic foot ulcer. The patient had an ulcer on the left big toe since November of last year. He was seeing Dr. Dain Arredondo in [facility] who was debriding the toe. In February, it had closed and he was doing much better. Then the ulcer reopen and it was causing more problems. On the week prior to admission, he developed severe fever up to 103 associated with shaking chills, nausea, vomiting and generalized malaise. He was admitted to [facility] and was started on IV vancomycin and Zosyn. His left foot was swollen. The toe had streaked up all the way to the knee. The patient stayed at [facility] for 4 days on IV antibiotics. The fever resolved and he was transferred to [facility] for podiatry care and vascular evaluation. He had negative blood cultures. MRI was negative for osteomyelitis. Arterial study showed no occlusions. He has remained afebrile and doing well. He is anxious to go home. He was seen in consultation by vascular surgery, as well as podiatry. The patient is anxious to go home. PAST MEDICAL HISTORY IS SIGNIFICANT FOR: Hypertension, type 2 diabetes, morbid obesity, nicotine dependence, gout, tobacco abuse. He smokes less than a pack a day, him and his . He has never thought about quitting up until today. PAST SURGICAL HISTORY: Umbilical hernia repair, cataract surgery, colonoscopy back surgery. FAMILY HISTORY: Father with non-Hodgkin lymphoma and mother with diabetes. SOCIAL HISTORY: He live with his . He is retired. He smokes less than a pack of cigarettes a day. He drinks socially. Does not use any drugs. PHYSICAL EXAMINATION: Healthy-looking gentleman in no acute distress. Vital signs: Temperature is 97.6, pulse 58, respirations 20, blood pressure 165/74, oxygen saturation 97% on room air. Heart: Normal S1-S2. No murmurs, rubs or gallops. Lungs are clear. No wheezes or rhonchi. Abdomen: Obese, soft, nontender. Back: No CVA or lumbosacral tenderness. Extremities: No clubbing, cyanosis or edema. Left big toe is erythematous. It has a small ulceration. The callus has been removed. There is minimal erythema on the dorsal aspect of the foot. LABORATORY DATA: His white count is 10.7, hemoglobin 12.2, hematocrit 36.6, platelets 271, 53% neutrophils, 10% lymphocytes, 4% monocytes. Sodium 141, potassium 4.1, chloride 108, bicarbonate 28, BUN 17, creatinine 1.13, glucose 141, calcium 9. AST 33, ALT 102, alkaline phosphatase 129, albumin 6.5, total protein 2.9. Blood culture one set is negative, MRSA screen 08/24 was negative and wound culture is pending. IMAGING STUDIES: Extremity arterial ulcer. No evidence of stenosis or occlusion. Foot Magnetic Resonance Imaging (MRI): No evidence of osteomyelitis or septic arthropathy, nonspecific soft tissue swelling of the forefoot and mid foot with no drainable abscess. IMPRESSION: This is a 53-year-old gentleman who was admitted with complicated skin and soft tissue infection that started in the left big toe underneath a callus. The patient was treated with vancomycin and Zosyn and is doing much better. He had debridement. There is no evidence of peripheral vascular disease or osteomyelitis. A wound culture has been obtained, but at this point the patient had been on so many antibiotics. I would suggest discontinuing IV vancomycin and Zosyn and switching to Zyvox 600 mg by mouth twice a day for 7 days. Discussed with the patient at length using Chantix for smoking cessation. The patient has agreed. He will also try and have his quit smoking with him. MEDICATIONS: - Zosyn and 3.375 grams IV every 6 hours - vancomycin 1 gram IV every 8 hours - Tylenol as needed - Colace 100 mg by mouth twice a day - insulin sliding scale 5 units subcutaneous before meals (ac) - Levemir 50 units subcutaneous twice a day - lisinopril 10 mg daily - Milk of Magnesium 30 mL as needed - morphine as needed - mupirocin ointment on toe daily - nicotine patch daily PLAN: From infectious disease standpoint, discharge the patient home tomorrow on Zyvox 600 mg by mouth twice a day for one week Monitor CRP, ESR. Monitor C-reactive protein (CRP), CBC in the morning before discharge. For smoking cessation advised nicotine patch and Chantix starter pack. [facility]
[2018-08-26 22:00] VITALS: BP 187/84
[2018-08-26] MEDS: LINEZOLID 600MG TABLET (ZYVOX) PO SCH (22:03)
[2018-08-27] MEDS: HEPARIN SOD (PORCINE) 5000 UNITS/ML VIAL SC SCH (05:36)
[2018-08-27 06:00] VITALS: BP 165/76
[2018-08-27 08:23] VITALS: BP 158/76
[2018-08-27] MEDS: LISINOPRIL 10 MG TAB PO SCH (08:23)
[2018-08-27] MEDS: LINEZOLID 600MG TABLET (ZYVOX) PO SCH (08:23)
[2018-08-27] MEDS: LEVEMIR (INSULIN DETEMIR) 1 UNITS/0.01ML SC SCH (08:24)
[2018-08-27] MEDS: NICOTINE 14 MG/24 HR TRANSDERMAL TD SCH (08:24)
[2018-08-27] MEDS: HumaLOG INSULIN (NovoLOG) PER UNIT SC SCH ×4 (08:25→12:00)
[2018-08-27] MEDS: MUPIROCIN 2% OINT 22 GM TUBE TOP SCH (08:26)
[2018-08-27] MEDS ORDERED: VARENICLINE 0.5 MG TABLET PO SCH (09:00)
--- NOTE | 2018-08-27 09:36 | IPNPDOC ---
Date Seen The patient was seen on 08/27/18. Progress Note HPI: 53year oldM transferred from another hospital for further management of diabetic foot ulcer. Patient states last November he stubbed his left big toe and had a "callus". Initially started to treat with Neosporin but when foot did not get better he saw his primary care physician who prescribed antibiotics and rest to the affected extremity for 2-3 weeks. His symptoms resolved and states foot did not bother him anymore. Occasionally, however, he noticed intermittent drainage from the wound to his socks. Last , patient reported he suddenly felt nauseous, generalized malaise, nausea and vomiting. He went to the emergency room and was given antibiotic, Levaquin and sent home. Patient returned the next day, worse with a temp of 103. He was admitted and placed on vancomycin and Zosyn. His left foot at the time was swollen, red with streaking to his knee. Patient states he requested to be transferred to this facility for further evaluation and management. Vascular Surgery is consulted for further recommendations re non healing ulcer LLE. Denies any Headache, Chest Pain, Shortness of breath, cough, palpitations, abdominal pain, N/V/D or changes in bowel or bladder habits. Medical History Hypertension Type 2 diabetes mellitus Morbid obesity Nicotine dependence Gout Surgical History Umbilical hernia repair Right eye cataract Colonoscopy Back surgeries PE: GEN: 53yoM, appears stated age. Well-nourished, well developed. No acute distress. Alert and oriented x 3. HEENT: Normocephalic, atraumatic. Sclera are nonicteric. Conjunctiva without injection. No facial asymmetry. Moist mucous membranes. CHEST: Regular rate and rhythm, +S1, +S2 LUNGS: Clear to auscultation bilaterally. No wheezes, rales, or rhonchi. Breathing appears symmetric and easy. ABD: Round, soft, non-tender, non-distended. +Bowel sounds throughout. No rebound or guarding. EXT: No lower extremity edema appreciated. SKIN: Left foot with wound on plantar aspect great toe, dressing intact. Biphasic DP/PT on left with doppler. NEURO: Alert and oriented x 3. Cranial nerves III-XII are intact. No focal deficits appreciated. MRI Foot No evidence of osteomyelitis or septic arthropathy. Nonspecific soft tissue swelling of the forefoot and midfoot without evidence of drainable fluid collection Chronic neuroarthropathy changes of the midfoot Electronically signed by: Akil Hernandez On 08/24/2018 20:57:47 PM LE [place] US Balbuena scale and color images demonstrate relatively normal lower extremity arteries without evidence for stenosis or occlusion. Doppler interrogation demonstrates normal triphasic arterial wave forms and velocities through the ankles with mildly increased velocities through the bilateral feet. Peak systolic velocities (cm/sec) RIGHT LEFT Common femoral artery 92.5 67.5 Profunda femoris 89.5 41.8 SFA (proximal) 88.6 85.6 SFA (mid) 75.0 69.9 SFA (distal) 74.3 58.6 Popliteal artery 67.9 66.8 ROLA (prox.) 64.6 59.8 Tibioperoneal trunk 87.3 63.6 DIFFUSION FURNACE OPERATOR (prox.) 100.2 59.8 DIFFUSION FURNACE OPERATOR (distal) 92.4 111.6 ROLA (distal) 110.1 109.1 Impression: No evidence for stenosis or occlusion. A&P: 53year oldM transferred from another hospital for further management of diabetic foot ulcer. Patient states last November he stubbed his left big toe and had a "callus". Initially started to treat with Neosporin but when foot did not get better he saw his primary care physician who prescribed antibiotics and rest to the affected extremity for 2-3 weeks. His symptoms resolved and states foot did not bother him anymore. Occasionally, however, he noticed intermittent drainage from the wound to his socks. Last , patient was walking when he suddenly felt nauseous, generalized malaise, nausea and vomiting. He went to the emergency room and was given antibiotic, Levaquin and sent home. Patient returned the next day, worse with a temp of 103. He was admitted and placed on vancomycin and Zosyn. His left foot at the time was swollen, red with streaking to his knee. Patient states he requested to be transferred to this facility for further evaluation and management. Vascular Surgery is consulted for further recommendations. 1. LLE non healing wound. S/P debridement as per Dr Quezada 08/25/18 Afebrile. WBC 10.7. S/P IV Vanco/Zosyn currently Zyvox as per ID. BC neg x 1 MRSA screen pending. WC pending. SCR 1.13 08/26/18, BMP this a.m. pending. Plan for LLE angiogram as per Dr Ames 08/27/18. VS, I&O, 24H, Fishbone Vital Signs/I&O Vital Signs Date Time Temp Pulse Resp B/P (MAP) Pulse Ox O2 Delivery O2 Flow Rate FiO2 08/27/18 08:23 158/76 08/27/18 06:00 97.5 61 18 95 I&O- Last 24 Hours up to 6 AM 08/27/18 06:00 Intake Total 1470 ml Output Total 3425 ml Balance -1955 ml Laboratory Data 24H LABS Laboratory Tests 2 08/26/18 11:44: Bedside Glucose (Misc Panel) 210H 08/26/18 16:56: Bedside Glucose (Misc Panel) 196H 08/26/18 20:31: Bedside Glucose (Misc Panel) 224H 08/27/18 05:30: 08/27/18 05:47: Bedside Glucose (Misc Panel) 189H Microbiology Microbiology 08/24/18 Blood Culture - Preliminary, Resulted No Growth after 48 hours. All Specime... 08/24/18 MRSA Screen - Final, Complete 08/25/18 Wound Culture, Received Pending Mar Chavira August 27, 2018 09:36
[2018-08-27] MEDS ORDERED: ZYVO1TAB PO (09:40)
[2018-08-27] MEDS ORDERED: VARE05TA PO (09:42)
[2018-08-27] MEDS ORDERED: NICO14PA TD (09:42)
[2018-08-27 10:41] LABS: BLOOD UREA NITROGEN 16 MG/DL (7-18); CALCIUM LEVEL 8.3 MG/DL (8.5-10.1); CARBON DIOXIDE LEVEL 29 MEQ/L (21-32); CHLORIDE LEVEL 106 MEQ/L (98-107); CREATININE FOR GFR 1.16 MG/DL (0.70-1.30); GLOMERULAR FILTRATION RATE > 60.0 (>56); GLUCOSE, FASTING 245 MG/DL (70-100); POTASSIUM SERUM 4.9 MEQ/L (3.5-5.1); SODIUM LEVEL 140 MEQ/L (136-145)
[2018-08-27] MEDS ORDERED: HYDR-3713 PO (11:55)
--- NOTE | 2018-08-27 12:10 | DS.PDOC ---
Discharge Summary General Date of Admission August 24, 2018 at 15:49 Date of Discharge 08/27/18 Discharge Summary PROCEDURES PERFORMED DURING STAY: None. ADMITTING DIAGNOSES: 1. Cellulitis of left foot. DISCHARGE DIAGNOSES: 1. Colitis. Left foot. COMPLICATIONS/CHIEF COMPLAINT: Osteomylitis. HISTORY OF PRESENT ILLNESS: Patient is a 53-year-old male, past medical history significant for type 2 diabetes mellitus, morbid obesity, nicotine dependence, hypertension, transferred from another hospital on account of diabetic foot ulcer. Patient states last November. He stopped his left big toe and had a callus. Initially started to treat with Neosporin but when foot did not get better he saw his primary care physician who prescribed antibiotics and rest to the affected extremity for 2-3 weeks. His symptoms resolved and states foot did not bother him anymore. Occasionally, however, he noticed intermittently cage from the wound to his socks. Last , patient was walking when he suddenly felt nauseous, generalized malaise, nausea and vomiting. He went to the emergency room and was given antibiotic, Levaquin and sent home. Patient returned the next day, worse with a temp of 103. He was admitted and placed on vancomycin and Zosyn. His left foot at the time was swollen, red with streaking to his knee. Patient states he requested to be transferred to this facility for further evaluation and management. On initial assessment here. He is not febrile foot is still very painful, however,per patient looks improved from prior.. HOSPITAL COURSE: Patient was admitted with the diagnosis of cellulitis of left foot and rule out osteo-mellitus. Patient had MRI and x-ray done which was not consistent with osteomyelitis. Patient was initially started with Vanco and Zosyn. Later on, Vanco was continued. Patient also was seen by us surgery. An I&D done and the wound culture sent for further studies. Patient was seen by Dr. bueno from [place] and is recommended. Zyvox 600 mg by mouth twice a day for 7 days Patient will follow with the surgeon in one week. DISCHARGE MEDICATIONS: Please see below. ALLERGIES: Please see below. PHYSICAL EXAMINATION ON DISCHARGE: VITAL SIGNS: Please see below. GENERAL: Within normal limits HEENT: PERRLA] NECK: Supple CARDIOVASCULAR EXAMINATION: S1, S2, regular RESPIRATORY EXAMINATION: Clear to A&P ABDOMINAL EXAMINATION: Benign EXTREMITIES: Negative clubbing, cyanosis, edema. Dressing at the left foot noted SKIN: As above NEUROLOGICAL EXAMINATION: No focal motor sensory deficit PSYCHIATRIC EXAMINATION: Normal LABORATORY DATA: Please see below. IMAGING: As per EMR PROGNOSIS: Good ACTIVITY: As tolerated. DIET: Carbohydrate consistent DISCHARGE PLAN: f/u with the surgery in one week DISPOSITION: . Home DISCHARGE INSTRUCTIONS: 1. As above. ITEMS TO FOLLOWUP ON ON OUTPATIENT: 1. As above. DISCHARGE CONDITION: Stable. TIME SPENT ON DISCHARGE: 45 minutes. Addendum: Patients. I was not preauthorized by his insurance company, infectious disease recommended Augmentin 875 mg by mouth twice a day for 10 days Vital Signs/I&Os Vital Signs Date Time Temp Pulse Resp B/P (MAP) Pulse Ox O2 Delivery O2 Flow Rate FiO2 08/27/18 08:23 158/76 08/27/18 06:00 97.5 61 18 95 I&O- Last 24 Hours up to 6 AM 08/27/18 06:00 Intake Total 1470 ml Output Total 3425 ml Balance -1955 ml Laboratory Data Labs 24H Laboratory Tests 2 08/26/18 16:56: Bedside Glucose (Misc Panel) 196H 08/26/18 20:31: Bedside Glucose (Misc Panel) 224H 08/27/18 05:30: 08/27/18 05:47: Bedside Glucose (Misc Panel) 189H 08/27/18 10:10: Anion Gap 5L, Glomerular Filtration Rate > 60.0, Blood Urea Nitrogen 16, Creatinine 1.16, Sodium Level 140, Potassium Level 4.9, Chloride Level 106, Carbon Dioxide Level 29, Calcium Level 8.3L 08/27/18 11:39: Bedside Glucose (Misc Panel) 231H CBC/BMP Laboratory Tests 08/27/18 10:10 Calcium Level 8.3 L FSBS Laboratory Tests Test 08/26/18 16:56 08/26/18 20:31 08/27/18 05:47 08/27/18 11:39 Range/Units Bedside Glucose (Misc Panel) 196 224 189 231 70-105 MG/DL Microbiology Microbiology 08/24/18 Blood Culture - Preliminary, Resulted No Growth after 48 hours. All Specime... 08/24/18 MRSA Screen - Final, Complete 08/25/18 Wound Culture, Received Pending Discharge Medications Scheduled Amoxicillin/Potassium Clav (Augmentin 875-125 Tablet) 1 Each Tablet, 1 TAB PO BID Fluoxetine HCl (Prozac) 20 Mg Cap, 60 MG PO DAILY, (Reported) Gabapentin (Gabapentin) 300 Mg Capsule, 300 MG PO BID, (Reported) Glipizide (Glipizide) 10 Mg Tab, 10 MG PO BID, (Reported) Lisinopril (Lisinopril) 10 Mg Tab, 10 MG PO DAILY, (Reported) Meloxicam (Mobic) 7.5 Mg Tablet, 7.5 MG PO BID, (Reported) Metformin HCl (Metformin HCl) 1,000 Mg Tab, 1,000 MG PO BID, (Reported) Montelukast Sodium (Montelukast Sodium) 10 Mg Tablet, 10 MG PO QHS, (Reported) Nicotine (Nicotine Patch) 21 Mg/24 Hr Patch.td24, 21 MG TD DAILY, (Reported) STARTED AT [facility] Nicotine (Nicotine Patch) 14 Mg Patch.td24, 14 MG TD DAILY Pioglitazone HCl (Actos) 45 Mg Tab, 45 MG PO DAILY, (Reported) Varenicline (Chantix) 0.5 Mg Tablet, 0.5 MG PO DAILY Scheduled PRN Cyclobenzaprine HCl (Cyclobenzaprine HCl) 10 Mg Tablet, 10 MG PO QHS PRN for MUSCLE SPASMS, (Reported) Hydrocodone/Acetaminophen (Hydrocodone-Acetamin 5-325 mg) 1 Each Tablet, 1 TAB PO BID PRN for PAIN, (Reported) Hydrocodone/Acetaminophen (Hydrocodone-Acetamin 5-325 mg) 1 Each Tablet, 1 TAB PO Q6H PRN for PAIN MDD 4 Allergies Coded Allergies: clindamycin (Verified Allergy, Severe, "CHEST POUNDING AND COULDN'T BREATHE", 08/24/18) CIERA MORELOS MD August 27, 2018 12:10
[2018-08-27] MEDS ORDERED: AUGM875T28 PO (13:48)
[2018-08-27 14:35] LABS: HEPATITIS B SURFACE ANTIGEN NEGATIVE (NEGATIVE); HEPATITIS C VIRUS ABY INDEX < 0.0 INDEX (<0.8)
--- NOTE | 2018-08-27 15:20 | IPN ---
DATE: 08/27/2090 Mr. Mccarthy is doing very well. He is excited to be going home. He has no nausea, vomiting or diarrhea. No abdominal pain, fever or chills. He was started yesterday on linezolid but it is not available at his local pharmacy. I called microbiology lab and wound culture is positive for a few alpha-Streptococcus, which will be identified tomorrow and Corynebacterium. There is no methicillin resistant Staphylococcus aureus (MRSA). LABORATORY DATA: White count 10.7, hemoglobin 12.2, hematocrit 36.6, platelets 271, 53% neutrophils, 29% lymphocytes, 10% monocytes. Sodium 140, potassium 4.9, chloride 106, bicarbonate 29, BUN 16, creatinine 1.16, glucose 245, calcium 8.3. IMPRESSION: 1. Cellulitis of left lower extremity in the setting of a diabetic foot ulcer, culture positive for alpha-Strep and Corynebacterium. No evidence of MRSA, improving. PLAN: Discharge home today on Augmentin 875 mg by mouth twice a day for 1 week. Continue to followup with Dr. Quezada and his primary care provider. He does not need infectious disease followup.
[2018-08-27] MEDS ORDERED: AUGMENTIN 875 MG TAB PO SCH (21:00)
== END 2018-08-27 13:14 | disposition home or self-care (01) | DRG 380 ==
LOC: M MSPAV 15:49
PROVIDERS: ADMIT Internal Medicine; ATTEND Internal Medicine
PROC: 0HDNXZZ Extraction of Left Foot Skin, External Approach (ICD-10-PCS; principal; 2018-08-25)
DX: E11.628 Type 2 diabetes mellitus with other skin complications (principal); E11.621 Type 2 diabetes mellitus with foot ulcer; L97.528 Non-pressure chronic ulcer of other part of left foot with other specified severity; Z68.42 Body mass index [BMI] 45.0-49.9, adult; E66.01 Morbid (severe) obesity due to excess calories; L03.116 Cellulitis of left lower limb; I10 Essential (primary) hypertension; F17.210 Nicotine dependence, cigarettes, uncomplicated; F17.220 Nicotine dependence, chewing tobacco, uncomplicated; M10.9 Gout, unspecified; Z79.4 Long term (current) use of insulin; Z79.899 Other long term (current) drug therapy; Z88.1 Allergy status to other antibiotic agents; Z98.41 Cataract extraction status, right eye

== ENCOUNTER → 2018-08-31 | Outpatient (REF) ==
[~2018-08-31] MED LIST changes: +AUGM875T28 PO; +BASA100I SC; +CYCL10TA PO; +GABA-843 PO; +HYDR-3713 PO; +INSUHUMDS SC; +MOBI4TAB PO; +MONT10TA2 PO; +NICO14PA TD; +NICO1DIS11 TD; +VARE05TA PO; +ZOSY3INJ2 IV; +ZYVO1TAB PO; +[UNRECOGNIZED DRUG - CODE] IV
--- NOTE | 2018-09-01 02:12 | REP ---
Clinical: Pain. Technique: AP, lateral, bilateral oblique views of the right knee. Findings: Mild arthritic degenerative changes include increased sclerosis to the tibial plateau with medial joint space narrowing and marginal early osteophytosis. Calcifications appear to be within the medial collateral ligament. There is no evidence for acute fracture or dislocation. No definite effusion. Impression: Mild arthritic degenerative changes. Electronically Signed by Zia Gregory MD 09/01/2018 02:04 A
--- NOTE | 2018-09-01 02:15 | REP ---
Clinical: Pain and disability. Technique: AP, lateral, coned-down views of the lumbosacral spine. Findings: Advanced multilevel degenerative changes include endplate sclerosis/irregularity, osteophytosis, disc space narrowing, and hypertrophic facet changes. Mild grade 1 anterolisthesis at L5-S1 with possible chronic spondylolysis cannot be excluded. No acute fracture / compression injury. Impression: Advanced multilevel degenerative spondylosis. Electronically Signed by Zia Gregory MD 09/01/2018 02:06 A
== END ==
LOC: M SMT 09:23
PROVIDERS: ATTEND Internal Medicine
DX: M17.11 Unilateral primary osteoarthritis, right knee (principal); M47.817 Spondylosis without myelopathy or radiculopathy, lumbosacral region

== ENCOUNTER 2018-10-05 14:23 | Inpatient (IN) | payer OTHER ==
[~2018-10-05] VITALS: Ht 190.5 cm; Wt 168.1 kg
[2018-10-05 16:55] VITALS: BP 168/77
--- NOTE | 2018-10-05 17:38 | HPEPDOC ---
[facility] Medical History & Physical Date of Admission Oct 05, 2018 Date of Service: Oct 05, 2018 History and Physical CHIEF COMPLAINT: fever, respiratory distress, leukocytosis, tachypnea HISTORY OF PRESENT ILLNESS: 53 yo male transferred from [facility] for concerns of sepsis. Patient originally admitted for foot cellulitis, which resolved with Zosyn/Vanco. However he developed shortness of breath, tachycardia, fever and was transferred for further evaluation and possible infectious disease consultation. PAST MEDICAL HISTORY: 1. HTN 2. DM 3. Depression PHYSICAL EXAMINATION: VITAL SIGNS: See below GENERAL APPEARANCE: NAD, lying comfortably in bed HEENT: NC/AT, EOMI, PERRL CARDIOVASCULAR: +S1S2, RRR LUNGS: CTA B/L ABDOMEN: soft, obese, NT, +BS EXTREMITIES: no edema, no erythema LABORATORY DATA: See below. MICROBIOLOGY: Please see below. ASSESSMENT: 53 yo male originally admitted to an outside facility for foot cellulitis, appears resolved, transferred to [facility] for concerns of sepsis. #sepsis - gentle hydration - IV Abx - check lactate #cellulitis - appears resolved #HTN - continue home meds #DM - continue home meds #Depression - continue home meds - fluoxetine #DVT prophylaxis - Home Medications Scheduled Amlodipine Besylate (Amlodipine Besylate) 5 Mg Tablet, 5 MG PO DAILY Fluoxetine HCl (Prozac) 20 Mg Cap, 60 MG PO DAILY Gabapentin (Gabapentin) 300 Mg Capsule, 300 MG PO BID Glipizide (Glipizide) 10 Mg Tab, 10 MG PO BID Insulin Glargine,Hum.rec.anlog (Basaglar Kwikpen U-100) 100 Unit/1 Ml Insuln.pen, 30 UNIT SC BID Insulin Human Regular (Novolin R) 100 Unit/1 Ml Vial, 1 DOSE SC ASDIRECTED PER SLIDING SCALE. STARTED AT [facility]. Levofloxacin (Levofloxacin) 750 Mg Tablet, 1 TAB PO DAILY Lisinopril (Lisinopril) 10 Mg Tab, 10 MG PO DAILY Meloxicam (Mobic) 7.5 Mg Tablet, 7.5 MG PO BID Metformin HCl (Metformin HCl) 1,000 Mg Tab, 1,000 MG PO BID Montelukast Sodium (Montelukast Sodium) 10 Mg Tablet, 10 MG PO QHS Nicotine (Nicotine Patch) 21 Mg/24 Hr Patch.td24, 21 MG TD DAILY APPLIES TO LEFT ARM. PATIENT CURRENTLY HAS A PATCH ON. Pioglitazone HCl (Actos) 45 Mg Tab, 45 MG PO DAILY Scheduled PRN Acetaminophen (Acetaminophen) 325 Mg Tablet, 650 MG PO Q4H PRN for MILD PAIN OR FEVER Hydrocodone/Acetaminophen (Hydrocodone-Acetamin 5-325 mg) 1 Each Tablet, 1 TAB PO Q6H PRN for PAIN PATIENT STATES HE HAS 5/325MG 7.5/325MG AND 10/325MG TABLETS AT HOME AND TAKES DEPENDING ON PAIN LEVEL. Tizanidine HCl (Tizanidine HCl) 2 Mg Capsule, 2 MG PO Q8H PRN for PAIN Allergies Coded Allergies: clindamycin (Verified Allergy, Severe, "CHEST POUNDING AND COULDN'T BREATHE", 08/24/18) A-FIB/CHADSVASC A-FIB History Current/History of A-Fib/PAF?: No Current PO Anticoag Therapy: No MARY PERALTA MD Oct 05, 2018 17:38
[2018-10-05] MEDS ORDERED: INSUDET SC (18:00)
[2018-10-05] MEDS ORDERED: AMLO5TAB6 PO (18:00)
[2018-10-05] MEDS ORDERED: TIZA2CAP PO (18:02)
[2018-10-05] MEDS ORDERED: ENOX80IN3 SC (18:02)
[2018-10-05] MEDS ORDERED: APAP325T4 PO (18:07)
[2018-10-05] MEDS ORDERED: HYDR-3713 PO (18:07)
[2018-10-05] MEDS ORDERED: INSUR SC (18:07)
[2018-10-05] MEDS ORDERED: BASA100I SC (18:11)
[2018-10-05] MEDS: PIPERACILLIN/TAZOBACTAM SOD 3.375 GM in D5W MINI-BAG PLUS 50 ML IV SCH ×2 (18:13→23:40)
[2018-10-05] MEDS: NS 1,000 ML IV SCH (18:13)
[2018-10-05] MEDS ORDERED: DEXTROSE 50% 50 ML SYRINGE IV PRN (18:45)
[2018-10-05] MEDS ORDERED: GLUCOSE 4 GM CHEW TABLET PO PRN (18:45)
[2018-10-05] MEDS ORDERED: GLUCAGON FOR INJ 1 MG VIAL (J1610) SC PRN (18:45)
[2018-10-05] MEDS: ACETAMINOPHEN 325 MG TAB PO PRN ×2 (18:53→23:40)
[2018-10-05 20:00] VITALS: BP 99/60
[2018-10-05] MEDS: MELOXICAM (MOBIC) 7.5 MG TAB PO SCH (20:40)
[2018-10-05] MEDS: GABAPENTIN 300 MG CAP PO SCH (20:40)
[2018-10-05] MEDS: MONTELUKAST 10 MG TAB PO SCH (20:40)
[2018-10-05] MEDS: LEVEMIR (INSULIN DETEMIR) 1 UNITS/0.01ML SC SCH (20:40)
[2018-10-05] MEDS: HumaLOG INSULIN (NovoLOG) PER UNIT SC SCH (20:41)
[2018-10-05 21:00] VITALS: BP 110/58
[2018-10-05 23:59] VITALS: BP 133/66
[2018-10-06 04:00] VITALS: BP 135/73
[2018-10-06 05:13] LABS: HEMATOCRIT 36.7 % (42.0-52.0); HEMOGLOBIN 12.3 g/dl (13.5-17.5); MEAN CORPUSCULAR HEMOGLOBIN 27.9 pg (27.0-33.0); MEAN CORPUSCULAR HGB CONC 33.5 g/dl (32.0-36.5); MEAN CORPUSCULAR VOLUME 83.2 fl (80.0-96.0); PLATELET COUNT, AUTOMATED 224 10^3/uL (150-450); RED BLOOD COUNT 4.41 10^6/uL (4.30-6.10); WHITE BLOOD COUNT 9.8 10^3/uL (4.0-10.0)
[2018-10-06 05:31] LABS: ERYTHROCYTE SEDIMENTATION RATE 50 mm/hr (0-20)
[2018-10-06 05:35] LABS: ALBUMIN 2.6 GM/DL (3.2-5.2); BILIRUBIN,TOTAL 0.4 MG/DL (0.2-1.0); C REACTIVE PROTEIN QUANTITATIV 17.3 MG/DL (0.00-0.30); CALCIUM LEVEL 8.4 MG/DL (8.5-10.1); CREATININE FOR GFR 1.41 MG/DL (0.70-1.30); GLOMERULAR FILTRATION RATE 55.8 (>56); POTASSIUM SERUM 4.1 MEQ/L (3.5-5.1); TOTAL PROTEIN 6.4 GM/DL (6.4-8.2)
[2018-10-06] MEDS: PIPERACILLIN/TAZOBACTAM SOD 3.375 GM in D5W MINI-BAG PLUS 50 ML IV SCH ×2 (05:45→12:24)
[2018-10-06] MEDS: NS 1,000 ML IV SCH (05:45)
[2018-10-06 08:00] VITALS: BP 136/76
[2018-10-06] MEDS: ENOXAPARIN 80 MG/0.8 ML SYRINGE (J1650) SC SCH (08:04)
[2018-10-06] MEDS: LEVEMIR (INSULIN DETEMIR) 1 UNITS/0.01ML SC SCH ×2 (08:04→21:15)
[2018-10-06] MEDS: HumaLOG INSULIN (NovoLOG) PER UNIT SC SCH ×4 (08:05→21:21)
[2018-10-06] MEDS: FLUoxetine 20 MG CAP PO SCH (08:06)
[2018-10-06] MEDS: MELOXICAM (MOBIC) 7.5 MG TAB PO SCH ×2 (08:06→21:16)
[2018-10-06] MEDS: GABAPENTIN 300 MG CAP PO SCH ×2 (08:07→21:16)
[2018-10-06] MEDS: lisinopriL 10 MG TAB PO SCH (08:07)
[2018-10-06] MEDS: amLODIPine 5 MG TAB PO SCH (08:07)
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
--- NOTE | 2018-10-06 09:37 | REP ---
Left shoulder series: Three views. History: Trauma. Limited range of motion. Fever. Findings: The left glenohumeral and acromioclavicular joints are normally aligned. There is minimal hypertrophy at the AC joint. No erosive changes seen. Periarticular soft tissues are unremarkable. There is hazy opacity in the left lung superiorly suggesting an infiltrate. Recommend chest x-ray. Impression: Hazy infiltrate suspected in the left lung recommended chest x-ray rule out pneumonia. Minimal hypertrophy of the AC joint. Otherwise negative. Electronically Signed by Óscar Gupta MD 10/06/2018 09:27 A
[2018-10-06] MEDS: NICOTINE 14 MG/24 HR TRANSDERMAL TD SCH (10:29)
[2018-10-06 12:00] VITALS: BP 143/70
--- NOTE | 2018-10-06 13:43 | REP ---
Chest x-ray: Two views. History: Neck fever. Suspicious findings on shoulder x-ray. Comparison chest x-ray: August 24, 2018. Findings: There is a fairly large dense infiltrate in the posterior segment of the left upper lobe consistent with pneumonia. This abuts the major fissure posteriorly. This corresponds with the abnormality seen on shoulder x-ray. The remaining lung cunningham are clear. The infiltrate is new when compared with an 11/24/2018 prior study. Right lung is clear. Heart size is normal. Pleural angles are sharp. Impression: Large dense infiltrate left upper lobe consistent with pneumonia. Electronically Signed by Óscar Gupta MD 10/06/2018 01:34 P
[2018-10-06 16:00] VITALS: BP 127/65
[2018-10-06] MEDS: tiZANidine 4 MG TAB PO PRN (16:24)
[2018-10-06] MEDS: NORCO, ANEXSIA 5/325MG TABLET (HYDROcodone/ACETAMINOPHEN) PO PRN ×2 (16:25→22:30)
[2018-10-06] MEDS: PIPERACILLIN/TAZOBACTAM SOD 4.5 GM in D5W MINI-BAG PLUS 50 ML IV SCH (18:10)
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
[2018-10-06 20:00] VITALS: BP 117/61
[2018-10-06] MEDS: MONTELUKAST 10 MG TAB PO SCH (21:16)
--- NOTE | 2018-10-06 21:30 | REPVR ---
EXAM: MR Left Upper Extremity Joint Without Contrast, Shoulder EXAM DATE/TIME: 10/06/2018 9:04 PM CLINICAL HISTORY: 53 years old, male; Pain; Shoulder; Left; Additional info: Trauma, shoulder pain TECHNIQUE: Imaging protocol: MR of the Left upper extremity without contrast. Exam focused on the shoulder. COMPARISON: CR Shoulder, complete LEFT 10/06/2018 8:59 AM FINDINGS: TENDONS: Supraspinatus: Complete rupture of the distal supraspinatus tendon with approximately 3.5 cm of retraction. There is fatty atrophy of the supraspinatus muscle. High T2 signal within the supraspinatus muscle is likely secondary to acute trauma. Infraspinatus: Complete rupture of the infraspinatus tendon with approximately 3 cm of retraction. Mild fatty atrophy of the infraspinatus muscle. Diffuse high T2 signal within the infraspinatus muscle is likely secondary to acute trauma. Subscapularis: Unremarkable. No evidence of tear. Teres minor: Unremarkable. No evidence of tear. Biceps brachii, long head: Intact. LIGAMENTS: Glenohumeral: Unremarkable. Glenoid labrum: There is mild degenerative fraying of the glenoid labrum. Cartilage: Unremarkable. Fluid: There is a large glenohumeral joint effusion with mild synovitis. Synovial fluid from the glenohumeral joint extends into the subacromial/subdeltoid space and biceps tendon sheath. There is a subscapularis bursitis. Muscles: See Supraspinatus Finding. Bones/joints: Moderate hypertrophic arthritis of the acromioclavicular joint. Obliteration of the humeral acromial space is suggestive of underlying chronic rotator cuff tear. An indeterminate 14 mm diameter low T1 signal lesion with minimal increased signal on T2-weighted scans within the proximal humerus metaphysis is present. This may represent a medullary bone infarct or other fibrotic lesion. A malignant lesion is unlikely, but not completely excluded. Followup evaluation with repeat MRI in 6 months is recommended. IMPRESSION: 1. Complete rupture of the supraspinatus and infraspinatus tendons with tendon retraction and muscle atrophy. 2. High T2 signal within the supraspinatus and infraspinatus muscles, likely the sequelae of acute trauma. 3. Glenohumeral joint effusion with mild synovitis. 4. Mild degenerative fraying of the glenoid labrum. 5. Indeterminate low T1 and mildly increased T2 signal lesion within the humeral head. Followup evaluation with MRI of the left shoulder in 6 months is recommended. Electronically signed by: Frederick Candelaria On 10/06/2018 21:30:35 PM
[2018-10-06 23:59] VITALS: BP 131/64
[2018-10-07] MEDS: PIPERACILLIN/TAZOBACTAM SOD 4.5 GM in D5W MINI-BAG PLUS 50 ML IV SCH ×4 (00:51→18:18)
[2018-10-07] MEDS: NS 1,000 ML IV SCH ×3 (00:53→15:06)
[2018-10-07] MEDS: tiZANidine 4 MG TAB PO PRN ×3 (00:55→22:06)
[2018-10-07 04:00] VITALS: BP 108/58
[2018-10-07 05:47] LABS: HEMOGLOBIN 11.8 g/dl (13.5-17.5); MEAN CORPUSCULAR HEMOGLOBIN 27.8 pg (27.0-33.0); MEAN CORPUSCULAR HGB CONC 32.8 g/dl (32.0-36.5); MEAN CORPUSCULAR VOLUME 84.9 fl (80.0-96.0); PLATELET COUNT, AUTOMATED 216 10^3/uL (150-450); RED BLOOD COUNT 4.24 10^6/uL (4.30-6.10); WHITE BLOOD COUNT 7.9 10^3/uL (4.0-10.0)
[2018-10-07 06:07] LABS: ALBUMIN 2.5 GM/DL (3.2-5.2); BILIRUBIN,TOTAL 0.3 MG/DL (0.2-1.0); C REACTIVE PROTEIN QUANTITATIV 15.6 MG/DL (0.00-0.30); CALCIUM LEVEL 8.7 MG/DL (8.5-10.1); CREATININE FOR GFR 1.33 MG/DL (0.70-1.30); GLOMERULAR FILTRATION RATE 59.6 (>56); POTASSIUM SERUM 4.4 MEQ/L (3.5-5.1); TOTAL PROTEIN 6.4 GM/DL (6.4-8.2)
[2018-10-07] MEDS: NORCO, ANEXSIA 5/325MG TABLET (HYDROcodone/ACETAMINOPHEN) PO PRN ×3 (06:38→21:02)
[2018-10-07 08:00] VITALS: BP 131/77
[2018-10-07] MEDS: LEVEMIR (INSULIN DETEMIR) 1 UNITS/0.01ML SC SCH ×2 (09:08→20:56)
[2018-10-07] MEDS: GABAPENTIN 300 MG CAP PO SCH ×2 (09:09→20:55)
[2018-10-07] MEDS: FLUoxetine 20 MG CAP PO SCH (09:09)
[2018-10-07] MEDS: amLODIPine 5 MG TAB PO SCH (09:09)
[2018-10-07] MEDS: HumaLOG INSULIN (NovoLOG) PER UNIT SC SCH ×4 (09:09→21:02)
[2018-10-07] MEDS: lisinopriL 10 MG TAB PO SCH (09:09)
[2018-10-07] MEDS: ENOXAPARIN 80 MG/0.8 ML SYRINGE (J1650) SC SCH (09:10)
[2018-10-07] MEDS: NICOTINE 14 MG/24 HR TRANSDERMAL TD SCH (09:10)
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
[2018-10-07] MEDS: MELOXICAM (MOBIC) 7.5 MG TAB PO SCH ×2 (11:00→20:55)
[2018-10-07 12:00] VITALS: BP 133/63
[2018-10-07 16:00] VITALS: BP 140/61
[2018-10-07 20:00] VITALS: BP 148/71
[2018-10-07] MEDS: MONTELUKAST 10 MG TAB PO SCH (20:55)
[2018-10-07 23:59] VITALS: BP 102/50
[2018-10-08] MEDS: PIPERACILLIN/TAZOBACTAM SOD 4.5 GM in D5W MINI-BAG PLUS 50 ML IV SCH ×2 (00:56→06:34)
[2018-10-08] MEDS: NS 1,000 ML IV SCH (01:20)
[2018-10-08 04:00] VITALS: BP 124/67
[2018-10-08 08:00] VITALS: BP 136/64
[2018-10-08] MEDS ORDERED: BASA100I SC (08:42)
[2018-10-08] MEDS ORDERED: LEVO750T13 PO (08:42)
[2018-10-08] MEDS: ENOXAPARIN 80 MG/0.8 ML SYRINGE (J1650) SC SCH (09:00)
[2018-10-08 09:49] VITALS: BP 136/64
[2018-10-08] MEDS: amLODIPine 5 MG TAB PO SCH (09:49)
[2018-10-08] MEDS: MELOXICAM (MOBIC) 7.5 MG TAB PO SCH (09:49)
[2018-10-08] MEDS: lisinopriL 10 MG TAB PO SCH (09:49)
[2018-10-08] MEDS: GABAPENTIN 300 MG CAP PO SCH (09:49)
[2018-10-08] MEDS: FLUoxetine 20 MG CAP PO SCH (09:49)
[2018-10-08] MEDS: NICOTINE 14 MG/24 HR TRANSDERMAL TD SCH (09:50)
[2018-10-08] MEDS: LEVEMIR (INSULIN DETEMIR) 1 UNITS/0.01ML SC SCH (09:50)
[2018-10-08] MEDS: HumaLOG INSULIN (NovoLOG) PER UNIT SC SCH (09:51)
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
== END 2018-10-08 12:25 | disposition home or self-care (01) | DRG 720 ==
LOC: M PCU 17:27
PROVIDERS: ADMIT Internal Medicine; ATTEND Internal Medicine
DX: A41.9 Sepsis, unspecified organism (principal); J18.9 Pneumonia, unspecified organism; Z68.42 Body mass index [BMI] 45.0-49.9, adult; E66.01 Morbid (severe) obesity due to excess calories; I10 Essential (primary) hypertension; E11.9 Type 2 diabetes mellitus without complications; F17.210 Nicotine dependence, cigarettes, uncomplicated; Z88.1 Allergy status to other antibiotic agents; F32.9 Major depressive disorder, single episode, unspecified; Z79.4 Long term (current) use of insulin; Z79.1 Long term (current) use of non-steroidal anti-inflammatories (NSAID); Z79.899 Other long term (current) drug therapy; Z98.49 Cataract extraction status, unspecified eye; S46.012A Strain of muscle(s) and tendon(s) of the rotator cuff of left shoulder, initial encounter; W22.8XXA Striking against or struck by other objects, initial encounter; V37.0XXA Driver of three-wheeled motor vehicle injured in collision with fixed or stationary object in nontraffic accident, initial encounter; Y99.8 Other external cause status

== ENCOUNTER → 2024-02-02 | Outpatient (CLI) | payer MEDICARE, OTHER ==
[~2024-02-02] MED LIST changes: +AMLO1TAB24 PO; +APAP325T4 PO; +CYCL-707 PO; -CYCL10TA PO; +ENOX80IN3 SC; +GABA-1172 PO; -GABA-843 PO; +INSUDET SC; +INSUR SC; +LEVO1TAB40 PO; +LISI10TA22 PO; -LISI10TA4 PO; -MONT10TA2 PO; +MONT10TA97 PO; +VANC1.5P21 IV; -[UNRECOGNIZED DRUG - CODE] IV
== END ==
LOC: M PLAIMG 09:00
PROVIDERS: ATTEND Orthopaedic Surgery
DX: M75.122 Complete rotator cuff tear or rupture of left shoulder, not specified as traumatic (principal)